=== PATIENT | female | born 1960 | race American Indian/Alaskan Native ===

== ENCOUNTER 2016-06-09 22:07 | Emergency (ER) | payer OTHER ==
[2016-06-09] MEDS ORDERED: TYLENOL PO ONE (22:24)
--- NOTE | 2016-06-10 05:43 | Emergency Department Report ---
- General Chief Complaint: Upper Respiratory Infection Stated Complaint: FLU SX Source: patient Mode of arrival: Wheelchair Limitations: No Limitations - History of Present Illness Initial Comments: 55-year-old female comes in for complaint of fever headache body aches diarrhea and vomiting coughing times one day. She she is here with her daughter with the same symptoms. Mother reports that she's also been out of her amlodipine she has an appointment with [facility] but appointment is not until August 10. She is requesting a refill on her blood pressure medicine. MD Complaint: fever, cough, sore throat - Related Data Previous Rx's Medication Instructions Recorded Last Taken Type Cetirizine HCl [ZyrTEC] 10 mg PO QDAY #30 capsule 06/10/16 Unknown Rx Fluticasone [Flonase] 1 spray NS QDAY #1 bottle 06/10/16 Unknown Rx amLODIPine [Norvasc] 5 mg PO DAILY #90 tab 06/10/16 Unknown Rx Allergies Allergy/AdvReac Type Severity Reaction Status Date / Time No Known Allergies Allergy Verified 09/30/14 11:27 ED Review of Systems ROS: Stated complaint: FLU SX Other details as noted in HPI Constitutional: chills, fever, malaise ENT: throat pain Respiratory: cough Gastrointestinal: nausea, vomiting, diarrhea ED Past Medical Hx - Past Medical History Previous Medical History?: Yes Hx Hypertension: Yes - Surgical History Past Surgical History?: Yes Hx Breast Surgery: Yes (reduction) Additional Surgical History: - Social History Smoking Status: Never Smoker Substance Use Type: None - Medications Home Medications: Home Medications Medication Instructions Recorded Confirmed Last Taken Type Cetirizine HCl [ZyrTEC] 10 mg PO QDAY #30 capsule 06/10/16 Unknown Rx Fluticasone [Flonase] 1 spray NS QDAY #1 bottle 06/10/16 Unknown Rx amLODIPine [Norvasc] 5 mg PO DAILY #90 tab 06/10/16 Unknown Rx ED Physical Exam - General Limitations: No Limitations General appearance: alert, in no apparent distress - Head Head exam: Present: atraumatic, normocephalic - Eye Eye exam: Present: normal appearance, PERRL - ENT ENT exam: Present: normal exam, mucous membranes moist - Neck Neck exam: Present: tenderness - Respiratory Respiratory exam: Present: normal lung sounds bilaterally. Absent: respiratory distress - Cardiovascular Cardiovascular Exam: Present: regular rate, normal rhythm. Absent: systolic murmur, diastolic murmur, rubs, gallop - GI/Abdominal GI/Abdominal exam: Present: soft, normal bowel sounds - Extremities Exam Extremities exam: Present: normal inspection ED Course Vital Signs 06/09/16 22:17 Temperature 101.6 F H Pulse Rate 115 H Respiratory 22 Rate Blood Pressure 156/109 O2 Sat by Pulse 97 Oximetry ED Medical Decision Making - Medical Decision Making Patient's been evaluated by this provider in fast track. Patient was given Tylenol in triage which she reports has helped with her fever and body aches. We sent out a rapid strep as well as influenza. Rapid strep and influenza negative. Discharge patient on amlodipine 5 mg 1 tablet by mouth daily as well as Zyrtec' s 10 mg by mouth daily Flonase 50 g each nostril daily. Patient verbalized understanding Critical care attestation.: If time is entered above; I have spent that time in minutes in the direct care of this critically ill patient, excluding procedure time. ED Disposition Clinical Impression: URI (upper respiratory infection) Qualifiers: URI type: unspecified URI Qualified Code(s): J06.9 - Acute upper respiratory infection, unspecified HTN (hypertension) Qualifiers: Hypertension type: essential hypertension Qualified Code(s): I10 - Essential ( primary) hypertension Disposition: DISCHARGED TO HOME OR SELFCARE Is pt being admited?: No Does the pt Need Aspirin: No Condition: Stable Instructions: Hypertension (ED) Additional Instructions: Provider recommends [id number] Robitussin or Mucinex for cough. Very importantly keep your appointment at [facility] for your hypertension. Takes [id number] TheraFlu Motrin Tylenol for pain and discomfort Prescriptions: amLODIPine [Norvasc] 5 mg PO DAILY #90 tab Cetirizine HCl [ZyrTEC] 10 mg PO QDAY #30 capsule Fluticasone [Flonase] 1 spray NS QDAY #1 bottle Referrals: PRIMARY CARE, [Primary Care Provider] - 3-5 Days [facility] [Outside] - 3-5 Days Forms: Work/School Release Form(ED)
[2016-06-10 06:46] VITALS: BP 148/96
== END 2016-06-10 06:03 | disposition home or self-care (01) ==
LOC: ED 22:07
DX: J06.9 Acute upper respiratory infection, unspecified (principal); I10 Essential (primary) hypertension; R11.2 Nausea with vomiting, unspecified; R19.7 Diarrhea, unspecified; R51 Headache; M79.1 Myalgia
CPT/HCPCS: 87116; 87400; 87430; 99283

== ENCOUNTER 2016-11-22 13:24 | Emergency (ER) | payer SELFPAY ==
[2016-11-22 14:58] VITALS: BP 151/98
--- NOTE | 2016-11-22 18:42 | Emergency Department Report ---
Entered by LUCIANA GLASS, acting as scribe for JATIN BIRD NP. - General Chief Complaint: Sore Throat Stated Complaint: SORE THROAT/TINGLING IN BOTH ARMS/HEADACHE Time Seen by Provider: 11/22/16 15:48 Source: patient Mode of arrival: Ambulatory Limitations: No Limitations - History of Present Illness Initial Comments: This is a 55 y/o female, nontoxic, well nourished in appearance, no acute signs of distress with a PMHx of HTN presents with c/o an upper respiratory infection for 4 days. Reports associated cough with yellow sputum, sore throat, and bilateral posterior shoulder pain. Rates throat pain a 6/10 in severity, which she describes as aching in quality. Aggravated with swallowing and alleviated with nothing. Rates bilateral posterior shoulder pain a 6/10 in severity, which she describes as aching in quality. Aggravated with movement and alleviated with immobilization. Patient denies fever, chills, chest pain, SOB, TERRAZAS or dizziness, numbness, drooling, difficulty swallowing, facial numbness or swelling, or tingling. Took Michelletahira Willamser and OTC cold medication with no relief. NKDA. GAVIN Complaint: cough, sore throat Onset/Timin -: days(s) Severity: moderate Severity scale (0 -10): 6 Quality: aching Consistency: constant Improves With: nothing Worsens With: other (swallowing) Associated Symptoms: denies other symptoms, myalgias (bilateral posterior shoulder pain), sore throat, cough (with yellow sputum). denies: fever, chills , diaphoresis, headache, rhinorrhea, nasal congestion, stiff neck, chest pain, shortness of breath, abdominal pain, nausea, vomiting, diarrhea, dysuria, rash, confusion, right sweats, weight loss, epistaxis, hoarseness, ear pain Treatments Prior to Arrival: "cold medicine", other (Liz Denney) - Related Data Previous Rx's Medication Instructions Recorded Last Taken Type Cetirizine HCl [ZyrTEC] 10 mg PO QDAY #30 capsule 06/10/16 Unknown Rx Fluticasone [Flonase] 1 spray NS QDAY #1 bottle 06/10/16 Unknown Rx amLODIPine [Norvasc] 5 mg PO DAILY #90 tab 06/10/16 Unknown Rx Amoxicillin [Trimox CAP] 500 mg PO Q8H #20 capsule 11/22/16 Unknown Rx Allergies Allergy/AdvReac Type Severity Reaction Status Date / Time No Known Allergies Allergy Verified 09/30/14 11:27 ED Review of Systems Comment: All other systems reviewed and negative Constitutional: denies: chills, diaphoresis, fever, weakness Eyes: denies: eye pain, eye discharge, vision change ENT: throat pain. denies: ear pain Respiratory: cough (with yellow sputum). denies: orthopnea, shortness of breath , SOB with exertion, SOB at rest, stridor, wheezing Cardiovascular: denies: chest pain, palpitations, dyspnea on exertion, orthopnea , edema, syncope, paroxysmal nocturnal dyspnea Endocrine: no symptoms reported Gastrointestinal: denies: abdominal pain, nausea, vomiting, diarrhea Genitourinary: denies: urgency, dysuria, discharge Musculoskeletal: other (bilateral posterior shoulder pain). denies: back pain, joint swelling, arthralgia Skin: denies: rash, lesions Neurological: denies: headache, weakness, numbness, paresthesias Psychiatric: denies: anxiety, depression Hematological/Lymphatic: denies: easy bleeding, easy bruising ED Past Medical Hx - Past Medical History Previous Medical History?: Yes Hx Hypertension: Yes - Surgical History Past Surgical History?: Yes Hx Breast Surgery: Yes (reduction) Additional Surgical History: , Tubaligation - Social History Smoking Status: Never Smoker Substance Use Type: Alcohol, Prescribed - Medications Home Medications: Home Medications Medication Instructions Recorded Confirmed Last Taken Type Cetirizine HCl [ZyrTEC] 10 mg PO QDAY #30 capsule 06/10/16 Unknown Rx Fluticasone [Flonase] 1 spray NS QDAY #1 bottle 06/10/16 Unknown Rx amLODIPine [Norvasc] 5 mg PO DAILY #90 tab 06/10/16 Unknown Rx Amoxicillin [Trimox CAP] 500 mg PO Q8H #20 capsule 11/22/16 Unknown Rx ED Physical Exam - General Limitations: No Limitations General appearance: alert, in no apparent distress - Head Head exam: Present: atraumatic, normocephalic - Eye Eye exam: Present: normal appearance, PERRL, EOMI. Absent: scleral icterus, conjunctival injection, nystagmus, periorbital swelling, periorbital tenderness Pupils: Present: normal accommodation - ENT ENT exam: Present: normal exam, mucous membranes moist, TM's normal bilaterally , normal external ear exam - Expanded ENT Exam Expanded Ear exam: Present: normal external inspection Mouth exam: Present: normal external inspection, tongue normal. Absent: drooling, trismus, muffled voice, tongue elevation, laceration Teeth exam: Present: normal inspection Throat exam: Positive: tonsillar erythema, tonsillomegaly (2+), tonsillar exudate, other (uvula midline. No tonsillar abscess noted. No swelling. No pus or drainage. ). Negative: R peritonsillar mass, L peritonsillar mass - Neck Neck exam: Present: normal inspection, full ROM. Absent: tenderness, meningismus, lymphadenopathy, thyromegaly - Respiratory Respiratory exam: Present: normal lung sounds bilaterally. Absent: respiratory distress, wheezes, rales, rhonchi, stridor, chest wall tenderness, accessory muscle use, decreased breath sounds, prolonged expiratory - Cardiovascular Cardiovascular Exam: Present: regular rate, normal rhythm, normal heart sounds. Absent: bradycardia, tachycardia, irregular rhythm, systolic murmur, diastolic murmur, rubs, gallop - GI/Abdominal GI/Abdominal exam: Present: soft, normal bowel sounds. Absent: distended, tenderness, guarding, rebound, rigid - Rectal Rectal exam: Present: deferred - Extremities Exam Extremities exam: Present: normal inspection, full ROM, normal capillary refill. Absent: tenderness, pedal edema, joint swelling, calf tenderness - Expanded Upper Extremity Exam Right General: Present: normal inspection (bilaterally). Absent: laceration, abrasion , nail injury (#), foreign body, amputation, avulsion Shoulder Exam: Present: normal inspection (bilaterally), full ROM. Absent: tenderness, swelling, abrasion, laceration, ecchymosis, deformity, crepidus, dislocation, erythema, tenderness over AC joint Upper Arm exam: Present: normal inspection (bilaterally), full ROM. Absent: tenderness, swelling, abrasion, laceration, ecchymosis, deformity, crepidus, dislocation, erythema Elbow exam: Present: normal inspection (bilaterally), full ROM. Absent: tenderness, swelling, abrasion, laceration, ecchymosis, deformity, crepidus, dislocation, erythema, effusion, pain w/ pronation/supination, tenderness over radial head Forearm Wrist exam: Present: normal inspection (bilaterally), full ROM. Absent : tenderness, swelling, abrasion, laceration, ecchymosis, deformity, crepidus, dislocation, erythema, tenderness over anatomical snuff box, pain with axial thumb loading Hand Wrist exam: Present: normal inspection (bilaterally), full ROM. Absent: tenderness, swelling, abrasion, laceration, ecchymosis, deformity, crepidus, dislocation, erythema, amputation, nail avulsion, subungual hematoma Neuro motor exam: Present: wrist extension intact, thumb opposition intact, thumb IP flexion intact, thumb adduction intact, fingers 2-5 abduction intact Neurosensory exam: Present: 2-point discrimination, radial nerve intact, ulnar nerve intact, median nerve intact Vascular: Present: normal capillary refill, radial pulse (2+), brachial pulse (2 +), ulnar pulse (2+). Absent: vascular compromise, Pallo, pulse deficit radial art, pulse deficit ulnar art, pulse deficit brachial art - Back Exam Back exam: Present: normal inspection, full ROM. Absent: tenderness, CVA tenderness (R), CVA tenderness (L), muscle spasm, paraspinal tenderness, vertebral tenderness, rash noted - Neurological Exam Neurological exam: Present: alert, oriented X3, CN II-XII intact, normal gait, reflexes normal. Absent: motor sensory deficit - Psychiatric Psychiatric exam: Present: normal affect, normal mood - Skin Skin exam: Present: warm, dry, intact. Absent: rash ED Course Vital Signs 11/22/16 14:53 Temperature 98.3 F Pulse Rate 74 Respiratory 20 Rate Blood Pressure 151/98 O2 Sat by Pulse 100 Oximetry - Reevaluation(s) Reevaluation #1: 11/22/16 16:34 Patient is able to speak in full sentences with no signs of distress noted. ED Medical Decision Making - Medical Decision Making ED course; this is a 55-year-old female that presents with exudative tonsillitis 1- patient was examined myself. Signs and symptoms are consistent with exudative tonsillitis and patient be treated with amoxicillin for 10 days. 2- patient was also instructed to follow up with her primary care doctor in 3-5 days or if symptoms such as shortness of breath, chest pain, difficulty breathing, difficulty swallowing, drooling, or worsening symptoms return to emergency room as was possible. 3- at time time of discharge, the patient does not seem toxic or ill in appearance. No acute signs of distress noted. Patient agrees to discharge treatment plan of care. No further questions noted by the patient. ED Disposition Clinical Impression: Exudative tonsillitis Disposition: DC- TO HOME OR SELFCARE Is pt being admited?: No Does the pt Need Aspirin: No Condition: Stable Instructions: Amoxicillin (By mouth), Tonsillitis (ED) Additional Instructions: follow up with your primary care doctor in 3-5 days or if symptoms such as shortness of breath, chest pain, difficulty breathing, difficulty swallowing, drooling, or worsening symptoms return to emergency room as was possible. Take full course of antibiotics and was prescribed. Prescriptions: Amoxicillin [Trimox CAP] 500 mg PO Q8H #20 capsule Referrals: PRIMARY CAREMD [Primary Care Provider] - 3-5 Days HUGO MATTHEW JR, MD [Staff Physician] - 3-5 Days [facility] [Outside] - 3-5 Days [facility] [Outside] - 3-5 Days Forms: Work/School Release Form(ED) This documentation as recorded by the QUAN luciano JASMINE,accurately reflects the service I personally performed and the decisions made by me,JATIN BIRD, LALI.
== END 2016-11-22 17:41 | disposition home or self-care (01) ==
LOC: ED 13:24
DX: J03.90 Acute tonsillitis, unspecified (principal); I10 Essential (primary) hypertension
CPT/HCPCS: 99282

== ENCOUNTER 2018-02-19 13:47 | Emergency (ER) | payer MEDICAID ==
[2018-02-19 14:28] VITALS: BP 135/84
[2018-02-19 15:12] LABS: Basophils % (Auto) 0.8 % (0.0-1.8); Eosinophils # (Auto) 0.2 K/mm3 (0.0-0.4); Eosinophils % (Auto) 4.5 % (0.0-4.3); Hematocrit 37.9 % (30.3-42.9); Hemoglobin 12.4 gm/dl (10.1-14.3); Lymphocytes # (Auto) 1.7 K/mm3 (1.2-5.4); Lymphocytes % (Auto) 47.2 % (13.4-35.0); Mean Corpuscular HGB Conc 33 % (30-34); Mean Corpuscular Volume 78 fl (79-97); Monocytes # (Auto) 0.5 K/mm3 (0.0-0.8); Monocytes % (Auto) 12.6 % (0.0-7.3); Platelet Count 265 K/mm3 (140-440); Red Blood Count 4.89 M/mm3 (3.65-5.03); Red Cell Distribution Width 14.1 % (13.2-15.2)
[2018-02-19 15:14] LABS: Mean Corpuscular Hemoglobin 25 pg (28-32)
[2018-02-19 15:25] LABS: Alanine Aminotransferase 17 units/L (7-56); BUN/Creatinine Ratio 17; Blood Urea Nitrogen 10 mg/dL (7-17); Calcium 9.1 mg/dL (8.4-10.2); Hemolysis Index 0; Lipase 20 units/L (13-60)
--- NOTE | 2018-02-19 15:49 | Emergency Department Report ---
ED Abdominal Pain HPI - General Chief Complaint: Abdominal Pain Stated Complaint: STOMACH PAIN (L) SIDE PAIN Time Seen by Provider: 02/19/18 15:41 Source: patient Mode of arrival: Ambulatory Limitations: No Limitations - History of Present Illness MD Complaint: abdominal pain -: Sudden, days(s) Location: diffuse Improves With: nothing Worsens With: nothing Associated Symptoms: nausea, vomiting - Related Data Previous Rx's Medication Instructions Recorded Last Taken Type amLODIPine [Norvasc] 5 mg PO DAILY #90 tab 06/10/16 Unknown Rx Ondansetron [Zofran Odt] 4 mg PO Q6H PRN #10 tab.rapdis 02/19/18 Unknown Rx Allergies Allergy/AdvReac Type Severity Reaction Status Date / Time No Known Allergies Allergy Verified 09/30/14 11:27 ED Review of Systems ROS: Stated complaint: STOMACH PAIN (L) SIDE PAIN Other details as noted in HPI Comment: All other systems reviewed and negative Constitutional: denies: chills, fever Eyes: denies: eye pain ENT: denies: ear pain Respiratory: denies: cough Cardiovascular: denies: palpitations Endocrine: denies: excessive sweating Gastrointestinal: abdominal pain, nausea, vomiting, diarrhea. denies: constipation, hematemesis Genitourinary: denies: urgency, dysuria Musculoskeletal: denies: back pain Skin: denies: rash, lesions Neurological: denies: headache, weakness Psychiatric: denies: anxiety, depression Hematological/Lymphatic: denies: easy bleeding ED Past Medical Hx - Past Medical History Hx Hypertension: Yes - Surgical History Hx Breast Surgery: Yes (reduction) Additional Surgical History: , Tubaligation - Social History Smoking Status: Never Smoker Substance Use Type: None - Medications Home Medications: Home Medications Medication Instructions Recorded Confirmed Last Taken Type amLODIPine [Norvasc] 5 mg PO DAILY #90 tab 06/10/16 Unknown Rx Ondansetron [Zofran Odt] 4 mg PO Q6H PRN #10 tab.rapdis 02/19/18 Unknown Rx ED Physical Exam - General Limitations: No Limitations General appearance: alert - Head Head exam: Present: atraumatic - Eye Eye exam: Present: normal appearance Pupils: Present: normal accommodation - ENT ENT exam: Present: mucous membranes moist - Neck Neck exam: Present: normal inspection - Respiratory Respiratory exam: Present: normal lung sounds bilaterally - Cardiovascular Cardiovascular Exam: Present: regular rate - GI/Abdominal GI/Abdominal exam: Present: soft, normal bowel sounds. Absent: distended, tenderness, guarding, rebound, rigid, diminished bowel sounds - Rectal Rectal exam: Present: deferred - Extremities Exam Extremities exam: Present: normal inspection - Back Exam Back exam: Present: normal inspection - Neurological Exam Neurological exam: Present: alert, oriented X3, CN II-XII intact - Psychiatric Psychiatric exam: Present: normal affect, normal mood - Skin Skin exam: Present: warm, dry, intact ED Course Vital Signs 02/19/18 14:26 Temperature 98.1 F Pulse Rate 89 Respiratory 14 Rate Blood Pressure 135/84 O2 Sat by Pulse 100 Oximetry ED Medical Decision Making - Lab Data Result diagrams: 02/19/18 14:56 02/19/18 14:56 - Medical Decision Making labs noted not orthostatic no fever non toxic taking po ambulatory fam w same gi illness over last few days - Differential Diagnosis gastroenteritis v uti Critical care attestation.: If time is entered above; I have spent that time in minutes in the direct care of this critically ill patient, excluding procedure time. ED Disposition Clinical Impression: Gastroenteritis, Hypokalemia Disposition: DC-01 TO HOME OR SELFCARE Is pt being admited?: No Does the pt Need Aspirin: No Condition: Stable Instructions: Gastroenteritis (ED), Acute Nausea and Vomiting (ED) Additional Instructions: eat a banana and/or orange juice every day hydrate well with water and slowly progress your diet as tolerated med today for nausea follow up pcp in 24-48 h if not better activity as tolerated Prescriptions: Ondansetron [Zofran Odt] 4 mg PO Q6H PRN #10 tab.rapdis PRN Reason: Nausea Referrals: PRIMARY CARE, [Primary Care Provider] - 3-5 Days PATRICK GONZALEZ MD [Referring] - 3-5 Days Forms: Work/School Release Form(ED) Time of Disposition: 16:54
[2018-02-19] MEDS ORDERED: ZOFRAN ODT PO ONE (15:52)
[2018-02-19] MEDS ORDERED: K-DUR PO ONE (16:19)
[2018-02-19 17:46] LABS: Bacteria,Urine 1+ /HPF (Negative); Bilirubin,Urine NEG (Negative); Blood,Urine MOD (Negative); Color,Urine Yellow (Yellow); Mucus,Urine FEW /HPF; Protein,Urine <15 mg/dL mg/dL (Negative)
== END 2018-02-19 18:05 | disposition home or self-care (01) ==
LOC: ED 13:47
DX: K52.9 Noninfective gastroenteritis and colitis, unspecified (principal); E87.6 Hypokalemia; I10 Essential (primary) hypertension; Z98.51 Tubal ligation status
CPT/HCPCS: 36415; 80053; 81001; 83690; 85025; 99283; Q0162

== ENCOUNTER 2020-08-31 20:34 | Observation (INO) | payer MEDICAID ==
[2020-08-31] MEDS ORDERED: ASPIRIN 81 MG TAB CHEW PO ONE (22:58)
--- NOTE | 2020-08-31 23:03 | Event Note ---
ED Screening Note Date of service: 08/31/20 Time: 22:59 ED Screening Note: 59-year-old female patient with history of hypertension presents to the emergency department with complaints of chest pain occurring tonight. Patient states she developed a "heavy" sensation in her chest after getting out of the shower tonight. She states this episode lasted approximately 20 minutes before resolving spontaneously. Patient recently began taking hydrochlorothiazide for hypertension. No other recent medication changes. No history of hyperlipidemia, diabetes, tobacco use. No known history of coronary artery disease. Tachycardic in triage. General: Awake, appropriately interactive, no acute distress. Neck: Supple. Full range of motion intact. Cardiovascular: Regular rate and rhythm. Normal peripheral perfusion. Pulmonary: Clear to auscultation bilaterally. No respiratory distress. Patient is speaking normally without use of accessory muscles. Skin: No apparent rashes or lesions. Neurological: No facial asymmetry. Speech is clear. Follows commands. Patient is alert and oriented. Musculoskeletal: Moves all four extremities spontaneously with normal range of motion. Psych: Cooperative. Appropriate mood and affect. I have greeted and performed a focused rapid initial assessment of this patient. A comprehensive ED assessment and evaluation of the patient, analysis of all test results, and completion of the medical decision-making process will be conducted by additional ED providers. This initial assessment/diagnostic orders/clinical plan/treatment(s) is/are subject to change based on patients health status, clinical progression and re-assessment. Further treatment and workup at subsequent clinical provider's discretion. Patient/guardian urged not to elope from the ED as their condition may be serious if not clinically assessed and managed. Decision to pursue further PE work-up deferred to additional ED providers.
[2020-08-31 23:31] LABS: Basophils # (Auto) 0.1 K/mm3 (0.0-0.1); Basophils % (Auto) 0.8 % (0.0-1.8); Eosinophils # (Auto) 0.2 K/mm3 (0.0-0.4); Eosinophils % (Auto) 2.1 % (0.0-4.3); Hematocrit 38.2 % (30.3-42.9); Hemoglobin 12.6 gm/dl (10.1-14.3); Lymphocytes # (Auto) 2.7 K/mm3 (1.2-5.4); Lymphocytes % (Auto) 36.1 % (13.4-35.0); Mean Corpuscular HGB Conc 33 % (30-34); Mean Corpuscular Volume 78 fl (79-97); Monocytes # (Auto) 0.7 K/mm3 (0.0-0.8); Platelet Count 269 K/mm3 (140-440); Red Blood Count 4.93 M/mm3 (3.65-5.03); Red Cell Distribution Width 14.9 % (13.2-15.2)
[2020-08-31 23:42] LABS: INR 0.94 (0.87-1.13); Partial Thromboplastin Time 28.1 Sec. (24.2-36.6)
[2020-09-01 00:38] LABS: Alanine Aminotransferase 15 units/L (7-56); Albumin 4.2 g/dL (3.9-5); BUN/Creatinine Ratio 14; Blood Urea Nitrogen 11 mg/dL (7-17); Calcium 9.9 mg/dL (8.4-10.2); Hemolysis Index 0
--- NOTE | 2020-09-01 01:25 | XRay Report ---
CHEST 2 VIEWS INDICATION / CLINICAL INFORMATION: Chest and epigastric pain. COMPARISON: 01/25/15. FINDINGS: SUPPORT DEVICES: None. HEART / MEDIASTINUM: The heart size is the upper limits of normal. Pulmonary vasculature is normal. T he aorta is normal in caliber. LUNGS / PLEURA: No significant pulmonary or pleural abnormality. No pneumothorax. ADDITIONAL FINDINGS: No significant additional findings. IMPRESSION: No acute abnormality or significant change. Signer Name: Chaitanya Landa MD Signed: 09/01/2020 1:21 AM Workstation Name: [id number]
--- NOTE | 2020-09-01 03:50 | Emergency Department Report ---
ED Chest Pain HPI - General Chief Complaint: Chest Pain Stated Complaint: Chest pain, lightheadedness PUI?: No Time Seen by Provider: 09/01/20 03:34 Source: patient, RN notes reviewed, old records reviewed Mode of arrival: Ambulatory Limitations: No Limitations - History of Present Illness Initial Comments: The patient was evaluated in the emergency department for symptoms described in the history of present illness. He/she was evaluated in the context of the global COVID-19 pandemic, which necessitated consideration that the patient might be at risk for infection with the virus that causes COVID-19. Institutional protocols and algorithms that pertain to the evaluation of patients at risk for COVID-19 are in a state of rapid change based on information released by regulatory bodies including the CDC and federal and s villarreal organizations. These policies and algorithms were followed during the patient's care in the emergency department. Please note that these policies, procedures and recommendations changed on a rapid basis. This is a 59-year-old female. She is not known to myself previously. Past medical history includes obesity, hypertension, question family history of ischemic heart disease and stroke. The patient presents to the ER today with complaint of nontraumatic epigastric pain, chest pain, that moved up to her neck. This happened last night. This is associated with lightheadedness. The patient denies travel, surgery, posterior leg pain or leg swelling, DVT and pulmonary embolism risk factors. The patient denies headache, exertional shortness of breath which is new or different, vomiting diaphoresis. She denies hematemesis and bright red blood per rectum. She took Goody's, but no recent aspirin otherwise. She believes she may have had a stress test a few months ago, and believes it was negative. However, she reports having had a stress test because of "elevated blood pressure." The patient reports that she is symptom-free at this time. She denies loss of consciousness. MD Complaint: chest pain, other -: Sudden Pain Location: substernal Pain Radiation: neck Severity: moderate Quality: other (Describes pain as burning in nature) Consistency: now resolved Improves With: nothing Worsens With: nothing re: other (Lightheadedness) Aspirin use within the Past 7 Days: (0) No - Related Data Previous Rx's Medication Instructions Recorded Last Taken Type amLODIPine 5 mg PO DAILY #90 tab 06/10/16 Unknown Rx Ondansetron [Zofran Odt] 4 mg PO Q6H PRN #10 tab.rapdis 02/19/18 Unknown Rx Allergies Allergy/AdvReac Type Severity Reaction Status Date / Time No Known Allergies Allergy Verified 09/30/14 11:27 Heart Score - HEART Score History: Moderately suspicious EKG: Non-specific Age: 45-65 Risk factors: > 3 risk factors or hx of atherosclerotic disease Troponin: < normal limit HEART Score: 5 - EKG Read Time Time EKG Completed: 20:50 EKG Read Time: 21:00 - Critical Actions Critical Actions: 4-6 pts:12-16.6% risk of adverse cardiac event. Should be admitted ED Review of Systems ROS: Stated complaint: LIGHT HEAD/BLOOD PRESSURE Other details as noted in HPI Constitutional: malaise, weakness. denies: fever Eyes: denies: eye discharge Respiratory: denies: cough Cardiovascular: chest pain, other (Lightheadedness) Gastrointestinal: denies: abdominal pain, hematemesis, melena, hematochezia Genitourinary: denies: dysuria Musculoskeletal: myalgia Neurological: weakness Psychiatric: anxiety Hematological/Lymphatic: denies: easy bleeding ED Past Medical Hx - Past Medical History Hx Hypertension: Yes - Surgical History Hx Breast Surgery: Yes (reduction) Additional Surgical History: , Tubaligation - Social History Smoking Status: Never Smoker Substance Use Type: Alcohol - Medications Home Medications: Home Medications Medication Instructions Recorded Confirmed Last Taken Type amLODIPine 5 mg PO DAILY #90 tab 06/10/16 Unknown Rx Ondansetron [Zofran Odt] 4 mg PO Q6H PRN #10 tab.rapdis 02/19/18 Unknown Rx ED Physical Exam - General Limitations: No Limitations General appearance: alert, anxious, obese - Head Head exam: Present: atraumatic, normocephalic - Eye Eye exam: Present: normal appearance, EOMI. Absent: conjunctival injection, nystagmus - ENT ENT exam: Present: normal exam, normal orophraynx, mucous membranes moist, normal external ear exam - Neck Neck exam: Present: normal inspection, full ROM. Absent: tenderness, meningismus - Respiratory Respiratory exam: Present: normal lung sounds bilaterally. Absent: respiratory distress, wheezes, rales, rhonchi, stridor, decreased breath sounds - Cardiovascular Cardiovascular Exam: Present: normal rhythm, tachycardia, normal heart sounds. Absent: bradycardia, irregular rhythm, systolic murmur, diastolic murmur, rubs, gallop - GI/Abdominal GI/Abdominal exam: Present: soft. Absent: distended, tenderness, guarding, rebound, rigid, pulsatile mass - Extremities Exam Extremities exam: Present: normal inspection, full ROM, other (2+ pulses noted in the bilateral upper and lower extremities. There is no palpable cord. negative Homans sign. Muscular compartments are soft. The pelvis is stable.). Absent: calf tenderness - Back Exam Back exam: Present: normal inspection, full ROM. Absent: tenderness, CVA tenderness (R), CVA tenderness (L), muscle spasm, paraspinal tenderness, vertebral tenderness - Neurological Exam Neurological exam: Present: alert, oriented X3, normal gait, other (No facial droop. Tongue midline. Extraocular movements intact bilaterally. Facial sensation intact to light touch in V1, V2, V3 distribution bilaterally. 5 and a 5 strength in 4 extremities. Sensation intact to light touch in 4 extremities.). Absent: motor sensory deficit - Psychiatric Psychiatric exam: Present: anxious - Skin Skin exam: Present: warm, dry, intact, normal color. Absent: rash ED Course Vital Signs 08/31/20 09/01/20 09/01/20 20:36 03:51 04:19 Temperature 98.7 F Pulse Rate 105 H 96 H Respiratory 18 18 Rate Blood Pressure 162/64 146/81 O2 Sat by Pulse 99 Oximetry HUDSON score - Hudson Score Age > 65: (0) No Aspirin use within the Past 7 Days: (0) No 3 or more CAD Risk Factors: (1) Yes 2 or more Angina events in past 24 hrs: (0) No Known CAD with more than 50% Stenosis: (0) No Elevated Cardiac Markers: (0) No ST Deviation Greater than 0.5mm: (0) No HUDSON Score: 1 ED Medical Decision Making - Lab Data Result diagrams: 08/31/20 23:10 08/31/20 23:10 Vital Signs 08/31/20 09/01/20 09/01/20 20:36 03:51 04:19 Temperature 98.7 F Pulse Rate 105 H 96 H Respiratory 18 18 Rate Blood Pressure 162/64 146/81 O2 Sat by Pulse 99 Oximetry Lab Results 08/31/20 08/31/20 08/31/20 Range/Units 23:10 23:10 23:10 WBC 7.4 (4.5-11.0) K/mm3 RBC 4.93 (3.65-5.03) M/mm3 Hgb 12.6 (10.1-14.3) gm/dl Hct 38.2 (30.3-42.9) % MCV 78 L (79-97) fl MCH 26 L (28-32) pg MCHC 33 (30-34) % RDW 14.9 (13.2-15.2) % Plt Count 269 (140-440) K/mm3 Lymph % (Auto) 36.1 H (13.4-35.0) % [place] % (Auto) 9.0 H (0.0-7.3) % Eos % (Auto) 2.1 (0.0-4.3) % Baso % (Auto) 0.8 (0.0-1.8) % Lymph # (Auto) 2.7 (1.2-5.4) K/mm3 [place] # (Auto) 0.7 (0.0-0.8) K/mm3 Eos # (Auto) 0.2 (0.0-0.4) K/mm3 Baso # (Auto) 0.1 (0.0-0.1) K/mm3 Seg Neutrophils % 52.0 (40.0-70.0) % Seg Neutrophils # 3.9 (1.8-7.7) K/mm3 PT 12.4 (12.2-14.9) Sec. INR 0.94 (0.87-1.13) APTT 28.1 (24.2-36.6) Sec. D-Dimer (0-234) ng/mlDDU Sodium 141 (137-145) mmol/L Potassium 4.3 (3.6-5.0) mmol/L Chloride 100.6 (98-107) mmol/L Carbon Dioxide 31 H (22-30) mmol/L Anion Gap 14 mmol/L BUN 11 (7-17) mg/dL Creatinine 0.8 (0.6-1.2) mg/dL Estimated GFR > 60 ml/min BUN/Creatinine Ratio 14 % Glucose 86 (65-100) mg/dL Calcium 9.9 (8.4-10.2) mg/dL Magnesium 2.10 (1.7-2.3) mg/dL Total Bilirubin 0.50 (0.1-1.2) mg/dL AST 14 (5-40) units/L ALT 15 (7-56) units/L Alkaline Phosphatase 84 (35-129) units/L Troponin T < 0.010 (0.00-0.029) ng/mL Total Protein 7.8 (6.3-8.2) g/dL Albumin 4.2 (3.9-5) g/dL Albumin/Globulin Ratio 1.2 % 08/31/20 09/01/20 Range/Units 23:10 02:09 WBC (4.5-11.0) K/mm3 RBC (3.65-5.03) M/mm3 Hgb (10.1-14.3) gm/dl Hct (30.3-42.9) % MCV (79-97) fl MCH (28-32) pg MCHC (30-34) % RDW (13.2-15.2) % Plt Count (140-440) K/mm3 Lymph % (Auto) (13.4-35.0) % [place] % (Auto) (0.0-7.3) % Eos % (Auto) (0.0-4.3) % Baso % (Auto) (0.0-1.8) % Lymph # (Auto) (1.2-5.4) K/mm3 [place] # (Auto) (0.0-0.8) K/mm3 Eos # (Auto) (0.0-0.4) K/mm3 Baso # (Auto) (0.0-0.1) K/mm3 Seg Neutrophils % (40.0-70.0) % Seg Neutrophils # (1.8-7.7) K/mm3 PT (12.2-14.9) Sec. INR (0.87-1.13) APTT (24.2-36.6) Sec. D-Dimer 135.00 (0-234) ng/mlDDU Sodium (137-145) mmol/L Potassium (3.6-5.0) mmol/L Chloride (98-107) mmol/L Carbon Dioxide (22-30) mmol/L Anion Gap mmol/L BUN (7-17) mg/dL Creatinine (0.6-1.2) mg/dL Estimated GFR ml/min BUN/Creatinine Ratio % Glucose (65-100) mg/dL Calcium (8.4-10.2) mg/dL Magnesium (1.7-2.3) mg/dL Total Bilirubin (0.1-1.2) mg/dL AST (5-40) units/L ALT (7-56) units/L Alkaline Phosphatase (35-129) units/L Troponin T < 0.010 (0.00-0.029) ng/mL Total Protein (6.3-8.2) g/dL Albumin (3.9-5) g/dL Albumin/Globulin Ratio % - EKG Data -: EKG Interpreted by [place] EKG shows normal: sinus rhythm Rate: tachycardia - EKG Data 09/01/20 04:26 EKG #1 interpreted at 21 00 Sinus rhythm, 98 bpm, left axis deviation, left anterior fascicular block, left ventricular hypertrophy, QTC prolonged. This is an abnormal EKG. This is not a STEMI. When compared to prior EKG from 2016, left axis deviation is more prominent. Left anterior fascicular block appears more prominent. There are nonspecific changes when compared to prior EKG - Radiology Data Radiology results: pending, report reviewed, image reviewed [facility] [address] [place] [address] X Ray Report Signed Patient: ANNABELLE MORENO MR#: [id number] 5 : 1960 Acct:[id number] Age/Sex: 59 / F ADM Date: 08/31/20 Loc: ED Attending Dr: Ordering Physician: ANAND HOWARD Date of Service: 08/31/20 Procedure(s): XR chest routine 2V Accession Number(s): [id number] cc: ANAND HOWARD Fluoro Time In Minutes: CHEST 2 VIEWS INDICATION / CLINICAL INFORMATION: Chest and epigastric pain. COMPARISON: 01/25/15. FINDINGS: SUPPORT DEVICES: None. HEART / MEDIASTINUM: The heart size is the upper limits of normal. Pulmonary vasculature is normal. The aorta is normal in caliber. LUNGS / PLEURA: No significant pulmonary or pleural abnormality. No pneumothorax. ADDITIONAL FINDINGS: No significant additional findings. IMPRESSION: No acute abnormality or significant change. Signer Name: Chaitanya Landa MD Signed: 09/01/2020 1:21 AM Workstation Name: [id number] Transcribed By: RT Dictated By: Chaitanya Landa MD Electronically Authenticated By: Chaitanya Landa MD Signed Date/Time: 09/01/20120 DD/ 9 - Medical Decision Making Differential diagnosis, including but not limited to: GERD, gastritis, hiatal hernia, pneumonia, acute coronary syndrome, pulmonary embolism Assessment and plan: 59-year-old female, with resolved tachycardia, who is not currently tachypneic or hypoxic, who denies DVT and pulmonary embolism risk factors, low risk by Wells criteria for pulmonary embolism, negative D-dimer, abnormal EKG, multiple cardiovascular risk factors, including family history, obesity, hypertension, moderate risk for major adverse cardiac event as per heart score, without pulsatile abdominal mass, who has equal pulses in the upper and lower extremities, unremarkable mediastinum x-ray of the chest, this is unlikely to be aortic disease, given heart score, vascular risk factor profile, have recommended admission to the medical service for accelerated cardiac risk ratification. We will treat the patient's symptoms. We have discussed this plan of care with the patient. She is amenable to admission and hospitali zation. [facility] physician, Dr. Joyce Banda, to admit to [facility] for accelerated cardiac risk stratification. Critical care attestation.: If time is entered above; I have spent that time in minutes in the direct care of this critically ill patient, excluding procedure time. ED Disposition Clinical Impression: Acute chest pain, Hypertension, Abnormal EKG Disposition: OP ADMIT IP TO THIS HOSP Is pt being admited?: Yes Does the pt Need Aspirin: No Condition: Good Instructions: Chest Pain (ED), Hypertension (ED) Referrals: WILLIAM HECTOR MD [Primary Care Provider] - 3-5 Days
[2020-09-01] MEDS ORDERED: amLODIPine 5 MG TAB PO ONE (03:51)
[2020-09-01] MEDS ORDERED: NITROGLYCERIN 0.4 MG TAB SUBL SL PRN (03:51)
--- NOTE | 2020-09-01 04:25 | History and Physical Report ---
History of Present Illness Date of examination: 09/01/20 Date of admission: 09/01/20 Chief complaint: Chest pain History of present illness: 59-year-old female patient with history of hypertension presents to the emergency department with complaints of chest pain occurring tonight. Patient states she developed a "heavy" sensation in her chest after getting out of the shower tonight. She states this episode lasted approximately 20 minutes before resolving spontaneously. Patient recently began taking hydrochlorothiazide for hypertension. No other recent medication changes. No history of hyperlipidemia, diabetes, tobacco use. No known history of coronary artery disease. ED work-up shows WBC 7.4, hemoglobin 12.6, platelets 629, D-dimer 135, sodium 141. Potassium 4.3 creatinine 0.8, BUN 11, troponin negative, calcium 9.9, serum glucose 86, magnesium 2.0. Checks x-ray showed no acute abnormality. Patient seen in ED at bedside. Patient is on room air. Patient alert and oriented x3. Patient said she came in due to chest pain. Patient denies chest pain at the time of this assessment. EKG was done and was not abnormal patient is admitted to rule out ischemic heart disease. Patient reported history of high blood pressure, breast reduction surgery, and . Patient denies tobacco, alcohol, illicit drug use. Patient not in acute distress. Echo and stress test ordered. Cardiology consulted Past History Past Medical History: hypertension Past Surgical History: , Other (Breast reduction) Social history: no significant social history, lives with family Family history: diabetes, hypertension Medications and Allergies Allergies Allergy/AdvReac Type Severity Reaction Status Date / Time No Known Allergies Allergy Verified 09/30/14 11:27 Home Medications Medication Instructions Recorded Confirmed Last Taken Type amLODIPine 5 mg PO DAILY #90 tab 06/10/16 Unknown Rx Ondansetron [Zofran Odt] 4 mg PO Q6H PRN #10 tab.rapdis 02/19/18 Unknown Rx Active Meds: Active Medications Nitroglycerin (Nitroglycerin 0.4 Mg Tab Subl) 0.4 mg SL .Q5MIN PRN PRN Reason: Chest Pain Review of Systems Constitutional: weakness Ears, nose, mouth and throat: no epistaxis, no bleeding gums, no swelling in mouth Breasts: no skin changes Cardiovascular: chest pain, no dyspnea on exertion Respiratory: no wheezing, no pleurisy Gastrointestinal: no abdominal pain, no nausea Rectal: no hemorrhoids Musculoskeletal: no neck stiffness, no neck pain Integumentary: no rash, no pruritis Neurological: no head injury Psychiatric: anxiety Hematologic/Lymphatic: no easy bruising, no easy bleeding Allergic/Immunologic: no urticaria Exam - Constitutional Vitals: Temp Pulse Resp BP Pulse Ox 98.7 F 96 H 18 146/81 99 08/31/20 20:36 09/01/20 04:19 09/01/20 03:51 09/01/20 04:19 08/31/20 20:36 General appearance: Present: mild distress, well-nourished - EENT Eyes: Present: PERRL ENT: hearing intact, clear oral mucosa - Neck Neck: Present: supple, normal ROM - Respiratory Respiratory effort: normal Respiratory: bilateral: CTA - Cardiovascular Heart rate: 96 Heart Sounds: Present: S1 & S2. Absent: rub, click - Extremities Extremities: pulses symmetrical, No edema Peripheral Pulses: within normal limits - Abdominal General gastrointestinal: Present: soft, non-tender, non-distended, normal bowel sounds Female genitourinary: Present: normal - Integumentary Integumentary: Present: clear, warm, dry. Absent: rash - Musculoskeletal Musculoskeletal: strength equal bilaterally - Psychiatric Psychiatric: appropriate mood/affect, intact judgment & insight, cooperative - Neurologic Neurologic: CNII-XII intact, moves all extremities - Allied Health Allied health notes reviewed: nursing HEART Score - HEART Score EKG: Non-specific Age: 45-65 Risk factors: > 3 risk factors or hx of atherosclerotic disease Troponin: Troponin T < 0.010 ng/mL (0.00-0.029) 09/01/20 02:09 Troponin: < normal limit - Critical Actions Critical Actions: 4-6 pts:12-16.6% risk of adverse cardiac event. Should be admitted Results - Labs CBC & Chem 7: 08/31/20 23:10 08/31/20 23:10 Labs: Abnormal lab results 08/31/20 08/31/20 Range/Units 23:10 23:10 MCV 78 L (79-97) fl MCH 26 L (28-32) pg Lymph % (Auto) 36.1 H (13.4-35.0) % [place] % (Auto) 9.0 H (0.0-7.3) % Carbon Dioxide 31 H (22-30) mmol/L Assessment and Plan - Patient Problems (1) Chest pain, rule out acute myocardial infarction Current Visit: No Status: Acute Plan to address problem: Patient has EKG abnormality but negative troponin Monitor cardiac enzymes and check twelve-lead EKG Antiplatelet and statin, patient on room air. Echo and stress test follow-up with results Fork Operator consult follow-up with recommendation (2) Hypertension Current Visit: Yes Status: Acute Plan to address problem: Monitor blood pressure Resume home antihypertensive As needed hydralazine (3) DVT prophylaxis Current Visit: Yes Status: Acute Plan to address problem: Subcutaneous Lovenox
[2020-09-01] MEDS ORDERED: FAMOTIDINE 20 MG/2 ML INJ IV ONE (04:29)
[2020-09-01] MEDS ORDERED: hydrALAZINE 20 MG/1 ML INJ IV PRN (04:30)
[2020-09-01] MEDS ORDERED: ACETAMINOPHEN 325 MG TAB PO PRN ×2 (04:32)
[2020-09-01] MEDS ORDERED: MAGNESIUM HYDROXIDE (MOM) ORAL LIQD UDC PO PRN (04:32)
[2020-09-01] MEDS ORDERED: traMADol 50 MG TAB PO PRN (04:32)
[2020-09-01] MEDS ORDERED: ONDANSETRON 4 MG/2 ML INJ IV PRN (04:32)
[2020-09-01] MEDS ORDERED: ALUM-MAG HYDROXIDE-SIMETHICONE 200-200-20MG/5ML ORAL LIQD 30 ML PO PRN (04:32)
[2020-09-01] MEDS ORDERED: traZODone 50 MG TAB PO PRN (04:42)
[2020-09-01] MEDS ORDERED: ASPIRIN 325 MG TAB PO ONE (05:39)
[2020-09-01] MEDS ORDERED: ASPIRIN EC 81 MG TAB PO SCH (10:00)
[2020-09-01] MEDS ORDERED: amLODIPine 5 MG TAB PO SCH (10:00)
[2020-09-01] MEDS ORDERED: FAMOTIDINE 20 MG/2 ML INJ IV SCH (10:00)
[2020-09-01] MEDS: ENOXAPARIN 40 MG/0.4 ML INJ SUB-Q SCH ×2 (10:14→12:32)
--- NOTE | 2020-09-01 10:35 | Consultation ---
History of Present Illness Consult date: 09/01/20 Requesting physician: DONYA CHERRY Consult reason: chest pain History of present illness: 59-year-old female with morbid obesity hypertension has chest pain from her belly to her neck. Enzymes have been negative x2. Patient states following with her primary care doctor had a stress test a few months ago was normal. Patient is chest pain-free and stomach did feel bloated earlier. Patient states compliance with medication. Patient states able to walk without issue. Patient denies any syncope fever chills nausea vomiting no reproducible symptoms. Past History Past Medical History: hypertension Past Surgical History: , Other (Breast reduction) Social history: no significant social history, lives with family Family history: diabetes, hypertension Medications and Allergies Allergies Allergy/AdvReac Type Severity Reaction Status Date / Time No Known Allergies Allergy Verified 09/30/14 11:27 Home Medications Medication Instructions Recorded Confirmed Last Taken Type amLODIPine 5 mg PO DAILY #90 tab 06/10/16 09/01/20 Unknown Rx Active Meds: Active Medications Acetaminophen (Acetaminophen 325 Mg Tab) 650 mg PO Q4H PRN PRN Reason: Pain MILD(1-3)/Fever >100.5/TERRAZAS Al Hydrox/Mg Hydrox/Simethicone (Alum-Mag Hydroxide-Simethicone [phone]/[phone] Oral Liqd 30 Ml) 30 ml PO Q4H PRN PRN Reason: Indigestion Amlodipine Besylate (Amlodipine 5 Mg Tab) 5 mg PO QDAY LARON Aspirin (Aspirin Ec 81 Mg Tab) 81 mg PO QDAY LARON Enoxaparin Sodium (Enoxaparin 40 Mg/0.4 Ml Inj) 40 mg SUB-Q DAILY LARON; Protocol Last Admin: 09/01/20 10:14 Dose: Not Given Documented by: Famotidine (Famotidine 20 Mg Tab) 20 mg PO BID LARON Hydralazine HCl (Hydralazine 20 Mg/1 Ml Inj) 5 mg IV Q4HR PRN PRN Reason: Hypertension Magnesium Hydroxide (Magnesium Hydroxide (Mom) Oral Liqd Udc) 30 ml PO Q4H PRN PRN Reason: Constipation Nitroglycerin (Nitroglycerin 0.4 Mg Tab Subl) 0.4 mg SL .Q5MIN PRN PRN Reason: Chest Pain Ondansetron HCl (Ondansetron 4 Mg/2 Ml Inj) 4 mg IV Q8H PRN PRN Reason: Nausea And Vomiting Sodium Chloride (Sodium Chloride 0.9% 10 Ml Flush Syringe) 10 ml IV PRN PRN PRN Reason: LINE FLUSH Sodium Chloride (Sodium Chloride 0.9% 10 Ml Flush Syringe) 10 ml IV BID LARON Tramadol HCl (Tramadol 50 Mg Tab) 50 mg PO Q6H PRN PRN Reason: Pain, Moderate (4-6) Trazodone HCl (Trazodone 50 Mg Tab) 50 mg PO QHS PRN PRN Reason: Insomnia Review of Systems All systems: negative (hpi) Physical Examination Vital Signs Temp Pulse Resp BP Pulse Ox 98.7 F 105 H 18 162/64 99 08/31/20 20:36 08/31/20 20:36 08/31/20 20:36 08/31/20 20:36 08/31/20 20:36 General appearance: no acute distress, well-nourished HEENT: Positive: PERRL, Mucus Membranes Moist Neck: Positive: neck supple, trachea midline Cardiac: Positive: Reg Rate and Rhythm, S1/S2. Negative: Audible Murmur Lungs: Positive: clear to auscultation, Normal Breath Sounds Neuro: Positive: Grossly Intact Abdomen: Positive: Soft, Active Bowel Sounds. Negative: Tender, Distended Female genitourinary: deferred Skin: Positive: Clear Incision: Cardiac Cath Site Musculoskeletal: No Pain, Normal Range of Motion Extremities: Present: normal. Absent: edema Results 08/31/20 23:10 08/31/20 23:10 Cardiac Enzymes 08/31/20 Range/Units 23:10 AST 14 (5-40) units/L Coagulation 08/31/20 Range/Units 23:10 PT 12.4 (12.2-14.9) Sec. INR 0.94 (0.87-1.13) APTT 28.1 (24.2-36.6) Sec. CBC 08/31/20 Range/Units 23:10 WBC 7.4 (4.5-11.0) K/mm3 RBC 4.93 (3.65-5.03) M/mm3 Hgb 12.6 (10.1-14.3) gm/dl Hct 38.2 (30.3-42.9) % Plt Count 269 (140-440) K/mm3 Lymph # (Auto) 2.7 (1.2-5.4) K/mm3 [place] # (Auto) 0.7 (0.0-0.8) K/mm3 Eos # (Auto) 0.2 (0.0-0.4) K/mm3 Baso # (Auto) 0.1 (0.0-0.1) K/mm3 Comprehensive Metabolic Panel 08/31/20 Range/Units 23:10 Sodium 141 (137-145) mmol/L Potassium 4.3 (3.6-5.0) mmol/L Chloride 100.6 (98-107) mmol/L Carbon Dioxide 31 H (22-30) mmol/L BUN 11 (7-17) mg/dL Creatinine 0.8 (0.6-1.2) mg/dL Glucose 86 (65-100) mg/dL Calcium 9.9 (8.4-10.2) mg/dL AST 14 (5-40) units/L ALT 15 (7-56) units/L Alkaline Phosphatase 84 (35-129) units/L Total Protein 7.8 (6.3-8.2) g/dL Albumin 4.2 (3.9-5) g/dL - Imaging and Cardiology Echo: pending EKG interpretations - Telemetry EKG Rhythm: Sinus Rhythm (Sinus rhythm nonspecific ST-T) Assessment and Plan 59-year-old patient with atypical chest pain hypertension negative cardiac enzymes EKG sinus rhythm nonspecific ST-T's patient had a recent stress test. Patient is able to ambulate without issue. Treat possible as GI. Follow-up echocardiogram if normal may be discharged from cardiovascular point of view blood pressure control with amlodipine 5 mg - Patient Problems (1) Acute chest pain Current Visit: Yes Status: Acute (2) Hypertension Current Visit: Yes Status: Acute
--- NOTE | 2020-09-01 11:14 | Discharge Summary ---
Providers - Providers Date of Admission: 09/01/20 04:29 Date of discharge: 09/01/20 Attending physician: DONYA CHERRY 09/01/20 04:32 Consult to Physician [CONS] Stat Comment: Consulting Provider: JONAH FELIX Physician Instructions: Reason For Exam: chest pain Primary care physician: WILLIAM HECTOR Hospitalization Condition: Good Hospital course: 59-year-old female patient with history of hypertension presents to the emergency department with complaints of chest pain occurring tonight. Patient states she developed a "heavy" sensation in her chest after getting out of the shower tonight. She states this episode lasted approximately 20 minutes before resolving spontaneously. Patient recently began taking hydrochlorothiazide for hypertension. No other recent medication changes. No history of hyperlipidemia, diabetes, tobacco use. No known history of coronary artery disease. Hospital course ED work-up shows WBC 7.4, hemoglobin 12.6, platelets 629, D-dimer 135, sodium 141. Potassium 4.3 creatinine 0.8, BUN 11, troponin negative, calcium 9.9, serum glucose 86, magnesium 2.0. Checks x-ray showed no acute abnormality. Patient seen in ED at bedside. Patient is on room air. Patient alert and oriented x3. Patient said she came in due to chest pain. Patient denies chest pain at the time of this assessment. EKG was done and was not abnormal patient is admitted to rule out ischemic heart disease. Patient reported history of high blood pressure, breast reduction surgery, and . Patient denies tobacco, alcohol, illicit drug use. Patient not in acute distress. Echo and stress test ordered. Cardiology consulted She had echocardiogram which showed normal EF. Etiology of her chest pain could be GI related. I will refer her to see a GI physician for possible EGD with manometry to rule out GERD and Esophageal spasm. I will start her on proton pump inhibitors for now She agrees with management Disposition: DC-01 TO HOME OR SELFCARE Final Discharge Diagnosis (Prints w/discharge instructions): Chest pain - GI related Time spent for discharge: 25 mins Core Measure Documentation - Palliative Care Palliative Care/ Comfort Measures: Not Applicable - Core Measures Any of the following diagnoses?: none Exam - Constitutional Vitals: Temp Pulse Resp BP Pulse Ox 98.8 F 88 18 134/82 100 09/01/20 07:40 09/01/20 07:40 09/01/20 07:40 09/01/20 07:40 09/01/20 07:40 General appearance: Present: no acute distress, well-nourished - EENT Eyes: Present: PERRL ENT: hearing intact, clear oral mucosa - Neck Neck: Present: supple, normal ROM - Respiratory Respiratory effort: normal Respiratory: bilateral: CTA - Cardiovascular Heart Sounds: Present: S1 & S2. Absent: rub, click - Extremities Extremities: pulses symmetrical, No edema Peripheral Pulses: within normal limits - Abdominal General gastrointestinal: Present: soft, non-tender, non-distended, normal bowel sounds Female genitourinary: Present: normal - Integumentary Integumentary: Present: clear, warm, dry - Musculoskeletal Musculoskeletal: gait normal, strength equal bilaterally - Psychiatric Psychiatric: appropriate mood/affect, intact judgment & insight - Neurologic Neurologic: CNII-XII intact, moves all extremities Plan Additional Instructions: Continue pantoprazole for now. Follow up with a gastroenterology in the office in 1-2 weeks Follow up with: WILLIAM HECTOR MD [Primary Care Provider] - 3-5 Days FERDINAND COOLEY MD [Staff Physician] - 7 Days Prescriptions: amLODIPine 5 mg PO DAILY #30 tab Pantoprazole [Protonix TAB] 40 mg PO QDAY #30 tablet
[2020-09-01 17:01] VITALS: BP 147/85
[2020-09-01] MEDS ORDERED: FAMOTIDINE 20 MG TAB PO SCH (22:00)
--- NOTE | 2020-09-02 10:44 | Electrocardiograph Report ---
[facility] Test Date: 2020-08-31 Test Time: 20:50:11 Pat Name: ANNABELLE MORENO Department: Room: A484 1 Gender: F Human Resources Officer: SHAQ : 1960 Requested By: MIRYAM GEE Order Number: [id number] Reading MD: Tennille Davison Measurements Intervals [place] Rate: 98 P: 53 [place]: 117 QRS: -25 QRSD: 76 T: 47 QT: 359 QTc: 459 Interpretive Statements Sinus rhythm Left ventricular hypertrophy No previous ECG available for comparison Electronically Signed On 09-02-2020 10:44:36 EDT by Tennille Davison
--- NOTE | 2020-09-02 10:46 | Electrocardiograph Report ---
[facility] Test Date: 2020-09-01 Test Time: 04:58:18 Pat Name: ANNABELLE MORENO Department: Room: A484 1 Gender: F Digital Art Director: : 1960 Requested By: KAVITHA MISTRY Order Number: [id number] Reading MD: Tennille Davison Measurements Intervals [place] Rate: 87 P: 48 [place]: 107 QRS: -11 QRSD: 76 T: 23 QT: 394 QTc: 475 Interpretive Statements Sinus rhythm Left ventricle hypertrophy Compared to ECG 08/31/2020 20:50:11 No significant changes Electronically Signed On 09-02-2020 10:46:19 EDT by Tennille Davison
== END 2020-09-01 18:44 | disposition home or self-care (01) ==
LOC: ED 20:34 → 4A 09-01 04:29
PROVIDERS: ADMIT Internal Medicine Geriatric Medicine; ATTEND Internal Medicine
DX: R07.89 Other chest pain (principal); I10 Essential (primary) hypertension; R94.31 Abnormal electrocardiogram [ECG] [EKG]; R42 Dizziness and giddiness; Z98.891 History of uterine scar from previous surgery; Z98.51 Tubal ligation status; Z98.890 Other specified postprocedural states
CPT/HCPCS: 36415; 71046; 80053; 83735; 84484; 85025; 85379; 85610; 85730; 93005; 93306; 96372; 96374; 99285; G0378; J1650

== ENCOUNTER 2020-11-14 17:13 | Emergency (ER) | payer MEDICAID ==
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
[2020-11-14] MEDS ORDERED: amLODIPine 5 MG TAB PO ONE (17:35)
[2020-11-14] MEDS ORDERED: hydrOXYzine PAMOATE 25 MG CAP PO ONE (17:35)
[2020-11-14] MEDS ORDERED: SODIUM CHLORIDE 0.9% 1000 ML 1,000 ML IV ONE (17:42)
[2020-11-14] MEDS ORDERED: ONDANSETRON 4 MG/2 ML INJ IV ONE (17:42)
[2020-11-14] MEDS ORDERED: ONDANSETRON 4 MG/2 ML INJ ONE (17:42)
[2020-11-14 18:07] LABS: Basophils # (Auto) 0.1 K/mm3 (0.0-0.1); Basophils % (Auto) 1.6 % (0.0-1.8); Eosinophils # (Auto) 0.1 K/mm3 (0.0-0.4); Eosinophils % (Auto) 1.2 % (0.0-4.3); Hematocrit 39.1 % (30.3-42.9); Hemoglobin 12.5 gm/dl (10.1-14.3); Lymphocytes # (Auto) 2.3 K/mm3 (1.2-5.4); Lymphocytes % (Auto) 28.5 % (13.4-35.0); Mean Corpuscular HGB Conc 32 % (30-34); Mean Corpuscular Volume 77 fl (79-97); Monocytes # (Auto) 0.5 K/mm3 (0.0-0.8); Monocytes % (Auto) 5.6 % (0.0-7.3); Platelet Count 290 K/mm3 (140-440); Red Blood Count 5.07 M/mm3 (3.65-5.03); Red Cell Distribution Width 15.1 % (13.2-15.2)
[2020-11-14 18:26] LABS: Alanine Aminotransferase 16 units/L (7-56); Albumin 4.1 g/dL (3.9-5); Blood Urea Nitrogen 9 mg/dL (7-17); Calcium 9.3 mg/dL (8.4-10.2); Hemolysis Index 12
[2020-11-14 18:32] LABS: BUN/Creatinine Ratio 15
--- NOTE | 2020-11-14 18:46 | XRay Report ---
CHEST 1 VIEW 11/14/2020 6:34 PM INDICATION / CLINICAL INFORMATION: Tachycardia and hypoxia. COMPARISON: 08/31/20. FINDINGS: SUPPORT DEVICES: None. HEART / MEDIASTINUM: There is borderline cardiomegaly. Pulmonary vasculature is normal. The aorta is normal in caliber. LUNGS / PLEURA: No significant pulmonary or pleural abnormality. No pneumothorax. ADDITIONAL FINDINGS: No significant additional findings. IMPRESSION: No acute abnormality or significant change. Signer Name: Chaitanya Landa MD Signed: 11/14/2020 6:42 PM Workstation Name: [id number]
[2020-11-14] MEDS ORDERED: POTASSIUM CHLORIDE ER 20 MEQ TAB PO ONE (19:39)
[2020-11-14 20:33] VITALS: BP 124/74
--- NOTE | 2020-11-15 18:00 | Electrocardiograph Report ---
[facility] Test Date: 2020-11-14 Test Time: 17:29:38 Pat Name: ANNABELLE MORENO Department: Room: Gender: F Director Career: [id number] : 1960 Requested By: ROSIBEL LINDO Order Number: [id number] Reading MD: Tennille Davison Measurements Intervals [place] Rate: 118 P: 143 [place]: 120 QRS: 206 QRSD: 80 T: 128 QT: 343 QTc: 481 Interpretive Statements Sinus or ectopic atrial tachycardia Right axis deviation or consider limb lead malposition Abnormal T, consider ischemia, lateral leads Compared to ECG 09/01/2020 04:58:18 The limb leads are malplaced on the current ECG Electronically Signed On 11-15-2020 18:00:21 EDT by Tennille Davison
== END 2020-11-14 20:32 | disposition home or self-care (01) ==
LOC: ED 17:13
DX: E87.6 Hypokalemia (principal); E86.0 Dehydration; I10 Essential (primary) hypertension; Z79.899 Other long term (current) drug therapy; Z98.890 Other specified postprocedural states
CPT/HCPCS: 36415; 71045; 80053; 84443; 85025; 85379; 93005; 96361; 96374; 99284; J2405; Q0177

== ENCOUNTER 2021-01-14 13:40 | Emergency (ER) | payer MEDICAID ==
[2021-01-14 14:29] LABS: Alanine Aminotransferase 18 units/L (7-56); Albumin 4.3 g/dL (3.9-5); Blood Urea Nitrogen 8 mg/dL (7-17); Calcium 10.5 mg/dL (8.4-10.2); Hemolysis Index 2
[2021-01-14 14:30] LABS: BUN/Creatinine Ratio 13
--- NOTE | 2021-01-14 14:34 | XRay Report ---
CHEST 1 VIEW 01/14/2021 1:23 PM INDICATION / CLINICAL INFORMATION: Chest Pain. COMPARISON: 11/14/2020 FINDINGS: SUPPORT DEVICES: None. HEART / MEDIASTINUM: No significant abnormality. LUNGS / PLEURA: No significant pulmonary or pleural abnormality. No pneumothorax. ADDITIONAL FINDINGS: No significant additional findings. IMPRESSION: 1. No acute findings. Signer Name: Gerson Wilson MD Signed: 01/14/2021 2:30 PM Workstation Name: [id number]
[2021-01-14 15:20] LABS: Basophils # (Auto) 0.1 K/mm3 (0.0-0.1); Basophils % (Auto) 0.8 % (0.0-1.8); Eosinophils # (Auto) 0.1 K/mm3 (0.0-0.4); Eosinophils % (Auto) 0.7 % (0.0-4.3); Hematocrit 37.6 % (30.3-42.9); Hemoglobin 11.8 gm/dl (10.1-14.3); Lymphocytes # (Auto) 2.3 K/mm3 (1.2-5.4); Lymphocytes % (Auto) 33.6 % (13.4-35.0); Mean Corpuscular HGB Conc 31 % (30-34); Mean Corpuscular Volume 75 fl (79-97); Monocytes # (Auto) 0.5 K/mm3 (0.0-0.8); Monocytes % (Auto) 7.7 % (0.0-7.3); Platelet Count 395 K/mm3 (140-440); Red Blood Count 4.99 M/mm3 (3.65-5.03); Red Cell Distribution Width 15.2 % (13.2-15.2)
--- NOTE | 2021-01-14 17:35 | Emergency Department Report ---
ED Chest Pain HPI - General Chief Complaint: Chest Pain Stated Complaint: CHEST PRESSURE, BACK, RAPID PULSE PUI?: No Time Seen by Provider: 01/14/21 14:15 Source: patient Mode of arrival: Ambulatory Limitations: No Limitations - History of Present Illness Initial Comments: CC: I want to make sure that I do not have a stroke HPI: This is a 60 yo female with hx of GERD H Pylori who presents with left sided swelling and discomfort. Patient felt swelling at the left trapezious region. She has had had chest burning typical of GERD. She has had poor appetite. Denies fever, headache, cough, myalgias. she is not vaccinated against COVID 19 Complaint: chest pain -: Gradual, days(s) (1 week several days) Onset: during rest Pain Location: other (Left trapezius region and radiating to the left chest) Severity: mild Severity scale (0 -10): 7 Quality: aching Consistency: constant Improves With: nothing Worsens With: other (Palpation) - Related Data Previous Rx's Medication Instructions Recorded Last Taken Type Pantoprazole [Protonix TAB] 40 mg PO QDAY #30 tablet 09/01/20 Unknown Rx amLODIPine 5 mg PO DAILY #30 tab 09/01/20 Unknown Rx Potassium Chloride [K-Dur] 10 meq PO QDAY 30 Days #30 tablet 11/14/20 Unknown Rx Allergies Allergy/AdvReac Type Severity Reaction Status Date / Time No Known Allergies Allergy Verified 01/14/21 13:58 Heart Score - HEART Score History: Slightly suspicious EKG: Normal Age: 45-65 Risk factors: 1-2 risk factors Troponin: < normal limit HEART Score: 2 - EKG Read Time Time EKG Completed: 13:47 EKG Read Time: 13:56 - Critical Actions Critical Actions: 0-3 pts:0.9-1.7%risk of adverse cardiac event.Candidate for discharge ED Review of Systems ROS: Stated complaint: CHEST PRESSURE, BACK, RAPID PULSE Other details as noted in HPI Comment: All other systems reviewed and negative Constitutional: malaise. denies: chills, fever ENT: denies: throat pain, dental pain, hearing loss, epistaxis Respiratory: denies: cough, shortness of breath Cardiovascular: chest pain. denies: palpitations Gastrointestinal: nausea, diarrhea. denies: abdominal pain ED Past Medical Hx - Past Medical History Previous Medical History?: Yes Hx Hypertension: Yes Additional medical history: Prediabetes, uterine polyps - Surgical History Past Surgical History?: Yes Hx Breast Surgery: Yes (reduction) Additional Surgical History: , Tubaligation - Social History Smoking Status: Never Smoker Substance Use Type: None - Medications Home Medications: Home Medications Medication Instructions Recorded Confirmed Last Taken Type Pantoprazole [Protonix TAB] 40 mg PO QDAY #30 tablet 09/01/20 Unknown Rx amLODIPine 5 mg PO DAILY #30 tab 09/01/20 Unknown Rx Potassium Chloride [K-Dur] 10 meq PO QDAY 30 Days #30 tablet 11/14/20 Unknown Rx ED Physical Exam - General Limitations: No Limitations General appearance: alert, in no apparent distress - Head Head exam: Present: atraumatic, normocephalic - Eye Eye exam: Present: normal appearance - ENT ENT exam: Present: mucous membranes moist - Neck Neck exam: Present: normal inspection, full ROM - Respiratory Respiratory exam: Present: normal lung sounds bilaterally. Absent: respiratory distress, wheezes, rhonchi, stridor - Cardiovascular Cardiovascular Exam: Present: regular rate, normal rhythm, normal heart sounds. Absent: systolic murmur, diastolic murmur, rubs, gallop - GI/Abdominal GI/Abdominal exam: Present: soft, normal bowel sounds. Absent: distended, tenderness, guarding, rebound - Extremities Exam Extremities exam: Present: normal inspection - Back Exam Back exam: Present: normal inspection - Neurological Exam Neurological exam: Present: alert, oriented X3 - Psychiatric Psychiatric exam: Present: normal affect, normal mood - Skin Skin exam: Present: warm, dry, intact, normal color. Absent: rash ED Course Vital Signs 01/14/21 01/14/21 01/14/21 14:03 14:45 14:50 Temperature 99.6 F Pulse Rate 120 H 105 H Respiratory 18 18 Rate Blood Pressure 140/97 [Left] O2 Sat by Pulse 99 100 100 Oximetry MARYBETH score - Marybeth Score Age > 65: (0) No Aspirin use within the Past 7 Days: (0) No 3 or more CAD Risk Factors: (1) Yes 2 or more Angina events in past 24 hrs: (0) No Known CAD with more than 50% Stenosis: (0) No Elevated Cardiac Markers: (0) No ST Deviation Greater than 0.5mm: (0) No MARYBETH Score: 1 ED Medical Decision Making - Lab Data Result diagrams: 01/14/21 12:55 01/14/21 12:55 Laboratory Results - last 24 hr 01/14/21 01/14/21 12:55 12:55 WBC 6.9 RBC 4.99 Hgb 11.8 Hct 37.6 MCV 75 L MCH 24 L MCHC 31 RDW 15.2 Plt Count 395 Lymph % (Auto) 33.6 [place] % (Auto) 7.7 H Eos % (Auto) 0.7 Baso % (Auto) 0.8 Lymph # (Auto) 2.3 [place] # (Auto) 0.5 Eos # (Auto) 0.1 Baso # (Auto) 0.1 Seg Neutrophils % 57.2 Seg Neutrophils # 4.0 Sodium 137 Potassium 3.6 Chloride 102.4 Carbon Dioxide 24 Anion Gap 14 BUN 8 Creatinine 0.6 Estimated GFR > 60 BUN/Creatinine Ratio 13 Glucose 156 H Calcium 10.5 H Total Bilirubin 0.90 AST 15 ALT 18 Alkaline Phosphatase 75 Troponin T < 0.010 Total Protein 8.6 H Albumin 4.3 Albumin/Globulin Ratio 1.0 - EKG Data -: EKG Interpreted by Ct EKG shows normal: sinus rhythm, axis, intervals, QRS complexes, ST-T waves Rate: tachycardia - EKG Data Interpretation: normal EKG (Exception sinus tachycardia) - Radiology Data Radiology results: report reviewed No acute findings according to radiology report: Chest radiograph - Medical Decision Making Chest wall pain with nausea diarrhea nonspecific generalized complaints strongly recommended COVID-19 testing. Referred to [facility] for outpatient cardiac risk ratification. No indication of pulmonary embolism. Chest x-ray without pneumonia. EKG troponin ruled out AMI. CBC chemistry troponin EKG x-ray unremarkable. Patient is discharged home. Cardiology referral faxed to [facility]. - Differential Diagnosis GERD, COVID-19 infection, chest wall pain, lipoma Critical care attestation.: If time is entered above; I have spent that time in minutes in the direct care of this critically ill patient, excluding procedure time. ED Disposition Clinical Impression: GERD (gastroesophageal reflux disease) Disposition: HOME / SELF CARE / HOMELESS Is pt being admited?: No Does the pt Need Aspirin: No Condition: Stable Referrals: MYA CANSECO MD [Staff Physician] - 3-5 Days
[2021-01-14 17:51] VITALS: BP 121/78
--- NOTE | 2021-01-17 09:41 | Electrocardiograph Report ---
[facility] Test Date: 2021-01-14 Test Time: 13:47:58 Pat Name: ANNABELLE MORENO Department: Room: Gender: F Digital Media Coordinator: CARMINE : 1960 Requested By: ROSIBEL LINDO Order Number: [id number] Reading MD: Ford Perla Measurements Intervals [place] Rate: 121 P: 44 [place]: 95 QRS: -9 QRSD: 66 T: 28 QT: 306 QTc: 434 Interpretive Statements Sinus tachycardia Compared to ECG 11/14/2020 17:29:38 T-wave abnormality no longer present Possible ischemia no longer present Electronically Signed On 01-17-2021 9:41:50 EDT by Ford Perla
== END 2021-01-14 18:16 | disposition home or self-care (01) ==
LOC: ED 13:40
DX: K21.9 Gastro-esophageal reflux disease without esophagitis (principal); I10 Essential (primary) hypertension; R73.03 Prediabetes; N84.0 Polyp of corpus uteri; Z98.890 Other specified postprocedural states
CPT/HCPCS: 36415; 71045; 80053; 84484; 85025; 93005; 99284

== ENCOUNTER 2021-01-22 12:36 | Emergency (ER) | payer MEDICAID ==
--- NOTE | 2021-01-22 13:53 | Emergency Department Report ---
ED Female HPI - General Chief complaint: Vaginal Bleeding Stated complaint: HEAVY BLEEDING LIGHT HEADED Time Seen by Provider: 01/22/21 13:24 Source: patient Mode of arrival: Ambulatory Limitations: No Limitations - History of Present Illness Initial comments: 60 year old female with pmhx of uterine fibroids, uterine polyps, and hypertension presents to the ER today with complaints of abnormal vaginal bleeding. Patient states that she started bleeding about 3 to 4 days ago. She states that initially the bleeding was light but yesterday after she took 2 baby aspirin, she noticed that the bleeding got heavier. She states that yesterday she had to change about 8 pads. Today she is only had to change 2. She reports passage of clots. She denies any abdominal pain. She reports that she felt a little lightheaded today. 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 She is currently on Provera 10 mg daily for abnormal bleeding which she started about 3 weeks ago. She states that she never had to have a blood transfusion. She is not on any blood thinners. MD Complaint: vaginal bleeding -: days(s) (3-4) - Related Data Previous Rx's Medication Instructions Recorded Last Taken Type Pantoprazole [Protonix TAB] 40 mg PO QDAY #30 tablet 09/01/20 Unknown Rx amLODIPine 5 mg PO DAILY #30 tab 09/01/20 Unknown Rx Potassium Chloride [K-Dur] 10 meq PO QDAY 30 Days #30 tablet 11/14/20 Unknown Rx Allergies Allergy/AdvReac Type Severity Reaction Status Date / Time No Known Allergies Allergy Verified 01/14/21 13:58 ED Review of Systems ROS: Stated complaint: HEAVY BLEEDING LIGHT HEADED Other details as noted in HPI Comment: All other systems reviewed and negative Constitutional: denies: chills, fever Eyes: denies: eye pain, eye discharge, vision change ENT: denies: ear pain, throat pain, dental pain, hearing loss, epistaxis, congestion Respiratory: denies: cough, shortness of breath, SOB with exertion, SOB at rest, wheezing Cardiovascular: denies: chest pain, palpitations, dyspnea on exertion, edema, syncope, paroxysmal nocturnal dyspnea Gastrointestinal: denies: abdominal pain, nausea, vomiting, diarrhea, constipation, hematemesis, hematochezia Genitourinary: abnormal menses, other (vaginal bleeding ). denies: urgency, dysuria, frequency, hematuria, discharge Musculoskeletal: denies: back pain, joint swelling, arthralgia Skin: denies: rash, lesions, change in color, change in hair/nails, pruritus Neurological: other (Lightheaded ). denies: headache, weakness, numbness, paresthesias, confusion, abnormal gait, vertigo Psychiatric: denies: anxiety, depression, auditory hallucinations, visual hallucinations, homicidal thoughts, suicidal thoughts Hematological/Lymphatic: denies: easy bleeding, easy bruising, swollen glands ED Past Medical Hx - Past Medical History Previous Medical History?: Yes Hx Hypertension: Yes Additional medical history: Prediabetes, uterine polyps - Surgical History Past Surgical History?: Yes Hx Breast Surgery: Yes (reduction) Additional Surgical History: , Tubaligation - Social History Smoking Status: Never Smoker Substance Use Type: None - Medications Home Medications: Home Medications Medication Instructions Recorded Confirmed Last Taken Type Pantoprazole [Protonix TAB] 40 mg PO QDAY #30 tablet 09/01/20 Unknown Rx amLODIPine 5 mg PO DAILY #30 tab 09/01/20 Unknown Rx Potassium Chloride [K-Dur] 10 meq PO QDAY 30 Days #30 tablet 11/14/20 Unknown Rx ED Physical Exam - General Limitations: No Limitations General appearance: alert, in no apparent distress - Head Head exam: Present: atraumatic, normocephalic, normal inspection - Eye Eye exam: Present: normal appearance, PERRL, EOMI Pupils: Present: normal accommodation - ENT ENT exam: Present: normal exam, mucous membranes moist, TM's normal bilaterally - Neck Neck exam: Present: normal inspection, full ROM - Respiratory Respiratory exam: Present: normal lung sounds bilaterally. Absent: respiratory distress, wheezes, rales, rhonchi - Cardiovascular Cardiovascular Exam: Present: regular rate, normal rhythm, normal heart sounds - GI/Abdominal GI/Abdominal exam: Present: soft. Absent: distended, tenderness, guarding, rebound - Neurological Exam Neurological exam: Present: alert, oriented X3, CN II-XII intact, normal gait - Psychiatric Psychiatric exam: Present: normal affect, normal mood - Skin Skin exam: Present: intact ED Course Vital Signs 01/22/21 01/22/21 13:18 14:53 Temperature 98.7 F 98.1 F Pulse Rate 108 H 102 H Respiratory 16 16 Rate Blood Pressure 169/102 152/96 [Left] O2 Sat by Pulse 96 99 Oximetry ED Medical Decision Making - Lab Data Result diagrams: 01/22/21 14:09 01/22/21 14:09 - Medical Decision Making 1459: Unremarkable including normal H&H. CMP unremarkable. Patient currently resting comfortably. She is not in any acute distress. She is ambulatory with a normal gait. She is neurologically intact. Her vital signs are stable. At this time there is no indication for admission, or specialist consult. Recommend to patient that she follows up with her PNEUMATIC SYSTEM CONVEYOR OPERATOR next week. She understands to return if her symptoms changes or worsens in any way. - Differential Diagnosis Severe anemia, thrombocytopenia, metabolic abnormality Critical care attestation.: If time is entered above; I have spent that time in minutes in the direct care of this critically ill patient, excluding procedure time. ED Disposition Clinical Impression: Dysfunctional uterine bleeding Disposition: 01 HOME / SELF CARE / HOMELESS Is pt being admited?: No Does the pt Need Aspirin: No Condition: Stable Instructions: Abnormal Uterine Bleeding Additional Instructions: I recommend that you follow-up with your PNEUMATIC SYSTEM CONVEYOR OPERATOR next week. Return to ED if symptoms worsens or changes in anyway. Referrals: PRIMARY CARE, [Referring] - 3-5 Days Time of Disposition: 14:51
[2021-01-22 14:35] LABS: Basophils % (Auto) 0.7 % (0.0-1.8); Eosinophils % (Auto) 0.6 % (0.0-4.3); Hematocrit 33.1 % (30.3-42.9); Hemoglobin 10.6 gm/dl (10.1-14.3); Lymphocytes # (Auto) 1.3 K/mm3 (1.2-5.4); Lymphocytes % (Auto) 20.2 % (13.4-35.0); Mean Corpuscular HGB Conc 32 % (30-34); Mean Corpuscular Volume 77 fl (79-97); Monocytes # (Auto) 0.4 K/mm3 (0.0-0.8); Monocytes % (Auto) 6.5 % (0.0-7.3); Platelet Count 308 K/mm3 (140-440); Red Blood Count 4.33 M/mm3 (3.65-5.03); Red Cell Distribution Width 15.6 % (13.2-15.2)
[2021-01-22 14:44] LABS: Alanine Aminotransferase 17 units/L (7-56); Blood Urea Nitrogen 6 mg/dL (7-17); Calcium 9.1 mg/dL (8.4-10.2); Hemolysis Index 0
[2021-01-22 14:45] LABS: BUN/Creatinine Ratio 9
[2021-01-22 14:54] VITALS: BP 152/96
== END 2021-01-22 14:59 | disposition home or self-care (01) ==
LOC: ED 12:36
DX: N93.8 Other specified abnormal uterine and vaginal bleeding (principal); I10 Essential (primary) hypertension
CPT/HCPCS: 36415; 80053; 84703; 85025; 99283

== ENCOUNTER 2021-01-23 18:26 | Emergency (ER) | payer MEDICAID ==
[2021-01-23 19:02] VITALS: BP 146/85
--- NOTE | 2021-01-23 19:14 | Emergency Department Report ---
ED General Adult HPI - General Chief complaint: Chest Pain Stated complaint: LT SIDE SHOULDER, CHEST TIGHT FACE Time Seen by Provider: 01/23/21 19:02 Source: patient Mode of arrival: Ambulatory Limitations: No Limitations - History of Present Illness Initial comments: Patient is 60 years old female with history of hypertension and prediabetes. Patient also history of uterine polyps. Patient presented to the ER complaining of left sided chest pain left shoulder pain and left neck pain since last night. Patient described her pain as sharp on and off. Patient stated that she went to the fire department this morning and found that her blood pressure was 210/111. Patient denied any shortness of breath. No fever or chills. No focal weakness numbness or tingling sensation. Patient also denied any headache. - Related Data Previous Rx's Medication Instructions Recorded Last Taken Type Pantoprazole [Protonix TAB] 40 mg PO QDAY #30 tablet 09/01/20 Unknown Rx amLODIPine 5 mg PO DAILY #30 tab 09/01/20 Unknown Rx Potassium Chloride [K-Dur] 10 meq PO QDAY 30 Days #30 tablet 11/14/20 Unknown Rx amLODIPine 10 mg PO DAILY #30 tab 01/23/21 Unknown Rx Allergies Allergy/AdvReac Type Severity Reaction Status Date / Time No Known Allergies Allergy Verified 01/14/21 13:58 ED Review of Systems ROS: Stated complaint: LT SIDE SHOULDER, CHEST TIGHT FACE Other details as noted in HPI Comment: All other systems reviewed and negative Constitutional: denies: chills, fever Respiratory: denies: cough, shortness of breath, SOB with exertion, SOB at rest Cardiovascular: chest pain. denies: palpitations Gastrointestinal: denies: abdominal pain, nausea, vomiting, diarrhea, constipation, hematemesis, melena, hematochezia Musculoskeletal: denies: back pain Neurological: denies: headache, weakness, numbness, paresthesias, confusion ED Past Medical Hx - Past Medical History Hx Hypertension: Yes Additional medical history: Prediabetes, uterine polyps - Surgical History Hx Breast Surgery: Yes (reduction) Additional Surgical History: , Tubaligation - Social History Smoking Status: Never Smoker Substance Use Type: None - Medications Home Medications: Home Medications Medication Instructions Recorded Confirmed Last Taken Type Pantoprazole [Protonix TAB] 40 mg PO QDAY #30 tablet 09/01/20 Unknown Rx amLODIPine 5 mg PO DAILY #30 tab 09/01/20 Unknown Rx Potassium Chloride [K-Dur] 10 meq PO QDAY 30 Days #30 tablet 11/14/20 Unknown Rx amLODIPine 10 mg PO DAILY #30 tab 01/23/21 Unknown Rx ED Physical Exam - General Limitations: No Limitations General appearance: alert, in no apparent distress - Head Head exam: Present: atraumatic, normocephalic, normal inspection - Eye Eye exam: Present: normal appearance, PERRL - ENT ENT exam: Present: normal exam, normal orophraynx, mucous membranes moist - Neck Neck exam: Present: normal inspection, full ROM. Absent: tenderness, meningismus - Respiratory Respiratory exam: Present: normal lung sounds bilaterally - Cardiovascular Cardiovascular Exam: Present: regular rate, normal rhythm, normal heart sounds - GI/Abdominal GI/Abdominal exam: Present: soft, normal bowel sounds. Absent: distended, tenderness, guarding, rebound, rigid, organomegaly, mass, bruit, pulsatile mass, hernia - Extremities Exam Extremities exam: Present: normal inspection, full ROM, normal capillary refill. Absent: tenderness, pedal edema, joint swelling, calf tenderness - Back Exam Back exam: Present: normal inspection, full ROM. Absent: CVA tenderness (R), CVA tenderness (L) - Neurological Exam Neurological exam: Present: alert, oriented X3, CN II-XII intact, normal gait, reflexes normal. Absent: motor sensory deficit - Psychiatric Psychiatric exam: Present: normal mood - Skin Skin exam: Present: warm, intact, normal color ED Course Vital Signs 01/23/21 19:01 Temperature 97.9 F Pulse Rate 106 H Respiratory 16 Rate Blood Pressure 146/85 [Right] O2 Sat by Pulse 99 Oximetry ED Medical Decision Making - Lab Data Result diagrams: 01/23/21 19:16 01/23/21 19:16 - EKG Data -: EKG Interpreted by Ms EKG shows normal: sinus rhythm Rate: tachycardia - EKG Data Interpretation: no acute changes - Radiology Data Radiology results: report reviewed - Medical Decision Making Patient is 60 years old female with history of hypertension and prediabetes. Patient also history of uterine polyps. Patient presented to the ER complaining of left sided chest pain left shoulder pain and left neck pain since last night. Patient described her pain as sharp on and off. Patient stated that she went to the fire department this morning and found that her blood pressure was 210/111. Patient denied any shortness of breath. No fever or chills. No focal weakness numbness or tingling sensation. Patient also denied any headache. EKG showed no ST elevation. Labs reviewed and is unremarkable including a negative troponin x2. Chest x-ray is unremarkable. Patient symptoms most likely related to malignant hypertension however patient strongly advised to follow-up with her primary care physician for outpatient cardiac work-up. Debbie ent advised to return to the ER if she develop any new symptoms. Critical care attestation.: If time is entered above; I have spent that time in minutes in the direct care o f this critically ill patient, excluding procedure time. ED Disposition Clinical Impression: Acute chest pain, Malignant hypertension Disposition: HOME / SELF CARE / HOMELESS Is pt being admited?: No Condition: Stable Instructions: Chest Pain (ED), Hypertension (ED), Nonspecific Chest Pain, Adult, Managing Your Hypertension Prescriptions: amLODIPine 10 mg PO DAILY #30 tab Referrals: PRIMARY CARE, [Referring] - 3-5 Days
[2021-01-23 19:37] LABS: Hematocrit 30.4 % (30.3-42.9); Mean Corpuscular HGB Conc 33 % (30-34); Mean Corpuscular Volume 75 fl (79-97); Platelet Count 311 K/mm3 (140-440); Red Blood Count 4.03 M/mm3 (3.65-5.03); Red Cell Distribution Width 14.9 % (13.2-15.2)
--- NOTE | 2021-01-23 19:51 | XRay Report ---
. CHEST 2 VIEWS INDICATION: Chest Pain. COMPARISON: 01/14/2021 FINDINGS: SUPPORT DEVICES: None. HEART: Within normal limits. LUNGS/PLEURA: Minimal patchy medial right basilar airspace disease with otherwise clear lungs. No pn eumothorax. ADDITIONAL FINDINGS: None. IMPRESSION: 1. Lung findings as above. Signer Name: Bi Womack MD Signed: 01/23/2021 7:46 PM Workstation Name: [id number]
[2021-01-23 19:52] LABS: Blood Urea Nitrogen 7 mg/dL (7-17); Hemolysis Index 0
[2021-01-23 19:53] LABS: BUN/Creatinine Ratio 12
[2021-01-23 23:38] LABS: Anisocytosis 1+; Hypochromasia 1+; Platelet Estimate Consistent w Auto; Total Cells Counted 100
--- NOTE | 2021-02-07 13:49 | Electrocardiograph Report ---
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
== END 2021-01-23 23:11 | disposition home or self-care (01) ==
LOC: ED 18:26
DX: R07.9 Chest pain, unspecified (principal); I10 Essential (primary) hypertension; R73.03 Prediabetes; N84.0 Polyp of corpus uteri; Z98.890 Other specified postprocedural states
CPT/HCPCS: 36415; 71046; 80048; 84484; 85007; 85025; 93005; 99283

== ENCOUNTER 2021-02-09 15:53 | Emergency (ER) | payer MEDICAID ==
--- NOTE | 2021-02-09 16:40 | Emergency Department Report ---
ED Extremity Problem HPI - General Chief complaint: Extremity Problem,Nontraumatic Stated complaint: LEFT LEG PAIN/BP Time Seen by Provider: 02/09/21 16:23 Source: patient Mode of arrival: Ambulatory Limitations: No Limitations - History of Present Illness Initial comments: 60-year-old female presents to ED with left calf pain x3 days. Patient states i t feels like muscle soreness. She denies any swelling. Patient states she was instructed by her physician to come to the ED to rule out DVT. Patient denies any chest pain or shortness of breath. Patient is tachycardic but states it is because she is nervous about what is going on. MD Complaint: extremity pain -: days(s) (3) Location: left, other (calf) History of Same: No -: Yes myalgia, No arthralgia, No fever, No associated dyspnea, No associated chest pain Quality: other (soreness) Consistency: intermittent Improves with: nothing Worsens with: nothing Associated Symptoms: denies other symptoms - Related Data Previous Rx's Medication Instructions Recorded Last Taken Type Pantoprazole [Protonix TAB] 40 mg PO QDAY #30 tablet 09/01/20 Unknown Rx amLODIPine 5 mg PO DAILY #30 tab 09/01/20 Unknown Rx Potassium Chloride [K-Dur] 10 meq PO QDAY 30 Days #30 tablet 11/14/20 Unknown Rx amLODIPine 10 mg PO DAILY #30 tab 01/23/21 Unknown Rx Naproxen [Naprosyn] 500 mg PO BID #20 tablet 02/09/21 Unknown Rx Allergies Allergy/AdvReac Type Severity Reaction Status Date / Time No Known Allergies Allergy Verified 01/14/21 13:58 ED Review of Systems ROS: Stated complaint: LEFT LEG PAIN/BP Other details as noted in HPI Comment: All other systems reviewed and negative Constitutional: denies: chills, fever Respiratory: denies: shortness of breath Cardiovascular: denies: chest pain Musculoskeletal: as per HPI ED Past Medical Hx - Past Medical History Previous Medical History?: Yes Hx Hypertension: Yes Additional medical history: Prediabetes, uterine polyps - Surgical History Past Surgical History?: Yes Hx Breast Surgery: Yes (reduction) Additional Surgical History: , Tubaligation - Social History Smoking Status: Never Smoker Substance Use Type: None - Medications Home Medications: Home Medications Medication Instructions Recorded Confirmed Last Taken Type Pantoprazole [Protonix TAB] 40 mg PO QDAY #30 tablet 09/01/20 Unknown Rx amLODIPine 5 mg PO DAILY #30 tab 09/01/20 Unknown Rx Potassium Chloride [K-Dur] 10 meq PO QDAY 30 Days #30 tablet 11/14/20 Unknown Rx amLODIPine 10 mg PO DAILY #30 tab 01/23/21 Unknown Rx Naproxen [Naprosyn] 500 mg PO BID #20 tablet 02/09/21 Unknown Rx ED Physical Exam - General Limitations: No Limitations General appearance: alert, in no apparent distress - Head Head exam: Present: atraumatic, normocephalic - Eye Eye exam: Present: normal appearance, EOMI - ENT ENT exam: Present: mucous membranes moist - Neck Neck exam: Present: normal inspection - Respiratory Respiratory exam: Present: normal lung sounds bilaterally. Absent: respiratory distress - Cardiovascular Cardiovascular Exam: Present: normal rhythm, tachycardia - GI/Abdominal GI/Abdominal exam: Absent: distended - Extremities Exam Extremities exam: Present: normal inspection. Absent: pedal edema, calf tenderness - Neurological Exam Neurological exam: Present: alert, oriented X3 - Psychiatric Psychiatric exam: Present: normal affect, normal mood - Skin Skin exam: Present: warm, dry, intact, normal color ED Course Vital Signs 02/09/21 02/09/21 15:56 19:21 Temperature 98.4 F Pulse Rate 136 H 107 H Respiratory 16 16 Rate Blood Pressure 145/88 148/96 [Left] O2 Sat by Pulse 97 98 Oximetry ED Medical Decision Making - Lab Data Result diagrams: 02/09/21 16:43 02/09/21 16:43 - Radiology Data Radiology results: report reviewed, image reviewed - Medical Decision Making Patient sent to ED for evaluation of left calf pain. Leg appears normal. No swelling, no erythema. Ultrasound negative for DVT. Patient initially tachycardic, which patient attributed to being nervous and anxious about being i n the hospital. Repeat vital signs show heart rate has improved from 136 to 107 without intervention. Patient will be discharged at this time. Outpatient follow-up advised, return precautions given. - Differential Diagnosis DVT, myalgia Critical care attestation.: If time is entered above; I have spent that time in minutes in the direct care o f this critically ill patient, excluding procedure time. ED Disposition Clinical Impression: Left leg pain Disposition: HOME / SELF CARE / HOMELESS Is pt being admited?: No Condition: Stable Instructions: Leg Cramps Prescriptions: Naproxen [Naprosyn] 500 mg PO BID #20 tablet Referrals: RITA GARNICA MD [Primary Care Provider] - 3-5 Days Time of Disposition: 19:27
[2021-02-09 17:02] LABS: Basophils % (Auto) 0.6 % (0.0-1.8); Eosinophils % (Auto) 0.5 % (0.0-4.3); Hematocrit 29.1 % (30.3-42.9); Hemoglobin 9.4 gm/dl (10.1-14.3); Lymphocytes # (Auto) 1.5 K/mm3 (1.2-5.4); Lymphocytes % (Auto) 21.4 % (13.4-35.0); Mean Corpuscular HGB Conc 32 % (30-34); Mean Corpuscular Volume 74 fl (79-97); Monocytes # (Auto) 0.5 K/mm3 (0.0-0.8); Monocytes % (Auto) 7.5 % (0.0-7.3); Platelet Count 415 K/mm3 (140-440); Red Blood Count 3.95 M/mm3 (3.65-5.03)
[2021-02-09 17:10] LABS: BUN/Creatinine Ratio 9; Blood Urea Nitrogen 7 mg/dL (7-17); Calcium 9.7 mg/dL (8.4-10.2); Hemolysis Index 0
[2021-02-09 17:27] LABS: INR 0.9 (0.87-1.13); Partial Thromboplastin Time 26.4 Sec. (24.2-36.6)
--- NOTE | 2021-02-09 17:34 | Vascular Lab Report ---
DUPLEX DOPPLER LOWER EXTREMITY VEINS, LEFT INDICATION / CLINICAL INFORMATION: pain. TECHNIQUE: Duplex doppler imaging was performed through the veins of the left lower extremity using venous compr ession and other maneuvers. COMPARISON: None available. FINDINGS: LEFT COMMON FEMORAL VEIN: Negative. LEFT FEMORAL VEIN: Negative. LEFT POPLITEAL VEIN: Negative. LEFT CALF VEINS: Negative. ADDITIONAL FINDINGS: None. IMPRESSION: 1. No sonographic evidence for DVT in the left lower extremity. Signer Name: Zohaib Elliott MD Signed: 02/09/2021 5:30 PM Workstation Name: [id number]
[2021-02-09 19:22] VITALS: BP 148/96
--- NOTE | 2021-02-10 10:36 | Electrocardiograph Report ---
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
== END 2021-02-09 20:03 | disposition home or self-care (01) ==
LOC: ED 15:53
DX: M79.605 Pain in left leg (principal); I10 Essential (primary) hypertension
CPT/HCPCS: 36415; 80048; 85025; 85379; 85610; 85730; 93005; 99284

== ENCOUNTER 2021-03-12 12:32 | Emergency (ER) | payer MEDICAID ==
--- NOTE | 2021-03-12 13:28 | Emergency Department Report ---
ED Chest Pain HPI - General Chief Complaint: Chest Pain Stated Complaint: SHARP PAINS IN CHEST/HEADACHES Time Seen by Provider: 03/12/21 12:54 Source: patient Mode of arrival: Ambulatory Limitations: No Limitations - History of Present Illness Initial Comments: CC: chest pain HPI: This is a 60 yo female with hx of HTN, prediabetes, uterine polyps DUB, GERD who presents with chest pain. Two episodes of sharp central and left sided chest pain today and . Episodes last less than one second. Both episodes occurred at rest. Patient was evaluated by EMS on . Dr. Perla barrel assembly inspector performed echocardiogram and cardiac stress test March 01. Patient required cardiac clearance prior to AEROSOL SUPERVISOR surgery. She will have surgery to intervene on uterine polyps and endometrial thinking. She has had tachycardia. She stated that the barrel assembly inspector felt that medication Provera was likely causing the tachycardia. She admittedly has been under a lot of stress. Her best friend was taken to outside hospital due to cardiac arrest. She also had a recent in the family. I have reviewed electronic record. Patient had 2 negative D-dimer test this year, equivocal d-dimer last month In 2014 patient had myocardial perfusion scan which was normal negative for cardiac ischemia MD Complaint: chest pain -: Sudden Onset: during rest Pain Radiation: none Severity: mild Severity scale (0 -10): 4 Quality: sharp Consistency: now resolved Improves With: nothing Worsens With: nothing Treatments Prior to Arrival: other (EMS evaluation on ) - Related Data Previous Rx's Medication Instructions Recorded Last Taken Type Pantoprazole [Protonix TAB] 40 mg PO QDAY #30 tablet 09/01/20 Unknown Rx amLODIPine 5 mg PO DAILY #30 tab 09/01/20 Unknown Rx Potassium Chloride [K-Dur] 10 meq PO QDAY 30 Days #30 tablet 11/14/20 Unknown Rx amLODIPine 10 mg PO DAILY #30 tab 01/23/21 Unknown Rx Naproxen [Naprosyn] 500 mg PO BID #20 tablet 02/09/21 Unknown Rx Allergies Allergy/AdvReac Type Severity Reaction Status Date / Time No Known Allergies Allergy Verified 01/14/21 13:58 Heart Score - HEART Score History: Slightly suspicious EKG: Non-specific Age: 45-65 Risk factors: 1-2 risk factors Troponin: < normal limit HEART Score: 3 - EKG Read Time Time EKG Completed: 12:47 EKG Read Time: 12:54 - Critical Actions Critical Actions: 0-3 pts:0.9-1.7%risk of adverse cardiac event.Candidate for discharge ED Review of Systems ROS: Stated complaint: SHARP PAINS IN CHEST/HEADACHES Other details as noted in HPI Comment: All other systems reviewed and negative Constitutional: denies: chills, fever, malaise Respiratory: denies: cough, shortness of breath Cardiovascular: chest pain Gastrointestinal: denies: abdominal pain, nausea, vomiting Skin: denies: rash, lesions Neurological: denies: headache, weakness ED Past Medical Hx - Past Medical History Previous Medical History?: Yes Hx Hypertension: Yes Additional medical history: Prediabetes, uterine polyps - Surgical History Past Surgical History?: Yes Hx Breast Surgery: Yes (reduction) Additional Surgical History: , Tubaligation - Family History Family history: hypertension - Social History Smoking Status: Never Smoker Substance Use Type: None - Medications Home Medications: Home Medications Medication Instructions Recorded Confirmed Last Taken Type Pantoprazole [Protonix TAB] 40 mg PO QDAY #30 tablet 09/01/20 Unknown Rx amLODIPine 5 mg PO DAILY #30 tab 09/01/20 Unknown Rx Potassium Chloride [K-Dur] 10 meq PO QDAY 30 Days #30 tablet 11/14/20 Unknown Rx amLODIPine 10 mg PO DAILY #30 tab 01/23/21 Unknown Rx Naproxen [Naprosyn] 500 mg PO BID #20 tablet 02/09/21 Unknown Rx ED Physical Exam - General Limitations: No Limitations General appearance: alert, in no apparent distress - Head Head exam: Present: atraumatic, normocephalic - Eye Eye exam: Present: normal appearance - ENT ENT exam: Present: mucous membranes moist - Neck Neck exam: Present: normal inspection, full ROM - Respiratory Respiratory exam: Present: normal lung sounds bilaterally. Absent: respiratory distress, wheezes, rales, rhonchi - Cardiovascular Cardiovascular Exam: Present: regular rate, normal rhythm, normal heart sounds. Absent: systolic murmur, diastolic murmur, rubs, gallop - GI/Abdominal GI/Abdominal exam: Present: soft, normal bowel sounds. Absent: distended, tenderness, guarding, rebound - Extremities Exam Extremities exam: Present: normal inspection - Neurological Exam Neurological exam: Present: alert, oriented X3 - Psychiatric Psychiatric exam: Present: normal affect, normal mood - Skin Skin exam: Present: warm, dry, intact, normal color. Absent: rash MARYBETH score - Marybeth Score Age > 65: (0) No Aspirin use within the Past 7 Days: (0) No 3 or more CAD Risk Factors: (1) Yes 2 or more Angina events in past 24 hrs: (0) No Known CAD with more than 50% Stenosis: (0) No Elevated Cardiac Markers: (0) No ST Deviation Greater than 0.5mm: (0) No MARYBETH Score: 1 ED Medical Decision Making - Lab Data Result diagrams: 03/12/21 13:25 03/12/21 13:25 - Medical Decision Making Noncardiac chest pain, I do not suspect PE without persistent pain or symptoms. I do suspect stress reaction likely GERD likely PVCs. Patient given reassurance considering recent cardiac work-up by Dr. Perla. CBC chemistry troponin all within normal limits. Patient is discharged home. Refer to outpatient medicine physician. Critical care attestation.: If time is entered above; I have spent that time in minutes in the direct care of this critically ill patient, excluding procedure time. ED Disposition Clinical Impression: Chest wall pain Disposition: HOME / SELF CARE / HOMELESS Is pt being admited?: No Does the pt Need Aspirin: No Condition: Stable Instructions: Nonspecific Chest Pain, Adult Referrals: RITA GARNICA MD [Staff Physician] - 3-5 Days
[2021-03-12 14:07] LABS: Basophils # (Auto) 0.1 K/mm3 (0.0-0.1); Basophils % (Auto) 1.2 % (0.0-1.8); Eosinophils % (Auto) 0.8 % (0.0-4.3); Hematocrit 36.9 % (30.3-42.9); Hemoglobin 11.6 gm/dl (10.1-14.3); Lymphocytes # (Auto) 1.1 K/mm3 (1.2-5.4); Lymphocytes % (Auto) 20.7 % (13.4-35.0); Mean Corpuscular HGB Conc 31 % (30-34); Mean Corpuscular Volume 75 fl (79-97); Monocytes # (Auto) 0.3 K/mm3 (0.0-0.8); Monocytes % (Auto) 5.6 % (0.0-7.3); Platelet Count 325 K/mm3 (140-440); Red Blood Count 4.91 M/mm3 (3.65-5.03); Red Cell Distribution Width 17.5 % (13.2-15.2)
[2021-03-12 14:08] LABS: Alanine Aminotransferase 17 units/L (7-56); Albumin 4.2 g/dL (3.9-5); Blood Urea Nitrogen 6 mg/dL (7-17); Calcium 9.8 mg/dL (8.4-10.2); Hemolysis Index 0
[2021-03-12 14:18] LABS: BUN/Creatinine Ratio 10
[2021-03-12 15:20] VITALS: BP 133/86
== END 2021-03-12 15:17 | disposition home or self-care (01) ==
LOC: ED 12:32
DX: R07.89 Other chest pain (principal); I10 Essential (primary) hypertension
CPT/HCPCS: 36415; 80053; 84484; 85025; 93005; 99283

== ENCOUNTER 2021-04-17 12:49 | Emergency (ER) | payer MEDICAID ==
[2021-04-17] MEDS ORDERED: ACETAMINOPHEN 500 MG TAB PO ONE (14:51)
--- NOTE | 2021-04-17 14:52 | Emergency Department Report ---
ED General Adult HPI - General Chief complaint: Abdominal Pain Stated complaint: back pain Time Seen by Provider: 04/17/21 14:30 Source: patient Mode of arrival: Ambulatory Limitations: No Limitations - History of Present Illness Initial comments: 60-year-old female with a past medical history of hypertension, and tachycardia presents to the ER today with complaints of a knot to her epigastric area. She states that she noticed it yesterday and feels like is getting bigger and its tender to palpate. She also reports that she has been having pain in her left shoulder, but she admits that she has been having this pain off and on for about a few months and she was told prior that it could be related to muscle fatty tissue. She states that when she googled her symptoms, they told her it could be related to either pancreatic cancer or blockage in her heart and so she came in to get checked out. She reports some discomfort to her abdomen, but attributed to her being constipated. She states that she has not had a bowel movement in a few days, but did take Metamucil and had a normal bowel movement this morning. She denies any nausea, vomiting, shortness of breath, chest pain, fever, chills, UTI symptoms or URI symptoms. She denies any history of PE or DVT and denies any risk factors for PE or DVT. Patient admits that she had a colonoscopy 3 weeks ago by her GI specialist and it was normal. She also saw her silk soaker in January and had a normal echo and a normal nuclear stress test, but she was placed on metoprolol for her elevated heart rate. MD Complaint: "knot" epigastric area; Left shoulder pain -: days(s) Severity scale (0 -10): 8 - Related Data Previous Rx's Medication Instructions Recorded Last Taken Type Pantoprazole [Protonix TAB] 40 mg PO QDAY #30 tablet 09/01/20 Unknown Rx amLODIPine 5 mg PO DAILY #30 tab 09/01/20 Unknown Rx Potassium Chloride [K-Dur] 10 meq PO QDAY 30 Days #30 tablet 11/14/20 Unknown Rx amLODIPine 10 mg PO DAILY #30 tab 01/23/21 Unknown Rx Naproxen [Naprosyn] 500 mg PO BID #20 tablet 02/09/21 Unknown Rx Allergies Allergy/AdvReac Type Severity Reaction Status Date / Time No Known Allergies Allergy Verified 01/14/21 13:58 ED Review of Systems ROS: Stated complaint: back pain Other details as noted in HPI Comment: All other systems reviewed and negative Constitutional: denies: chills, fever Eyes: denies: eye pain, eye discharge, vision change ENT: denies: ear pain, throat pain Respiratory: denies: cough, shortness of breath, SOB with exertion, SOB at rest, wheezing Cardiovascular: denies: chest pain, edema, syncope, paroxysmal nocturnal dyspnea Gastrointestinal: abdominal pain. denies: nausea, vomiting, diarrhea, constipation, hematemesis, melena, hematochezia Genitourinary: denies: urgency, dysuria, frequency, hematuria, discharge, abnormal menses, dyspareunia Musculoskeletal: denies: back pain, joint swelling, arthralgia Skin: other (knot in epigastric area). denies: rash, lesions, change in color, change in hair/nails, pruritus Neurological: denies: headache, weakness, numbness, paresthesias, confusion, abnormal gait, vertigo Psychiatric: denies: anxiety, depression, auditory hallucinations, visual hallucinations, homicidal thoughts, suicidal thoughts Hematological/Lymphatic: denies: easy bleeding, easy bruising, swollen glands ED Past Medical Hx - Past Medical History Previous Medical History?: Yes Hx Hypertension: Yes Additional medical history: Prediabetes, uterine polyps - Surgical History Past Surgical History?: Yes Hx Breast Surgery: Yes (reduction) Additional Surgical History: , Tubaligation - Social History Smoking Status: Never Smoker Substance Use Type: None - Medications Home Medications: Home Medications Medication Instructions Recorded Confirmed Last Taken Type Pantoprazole [Protonix TAB] 40 mg PO QDAY #30 tablet 09/01/20 Unknown Rx amLODIPine 5 mg PO DAILY #30 tab 09/01/20 Unknown Rx Potassium Chloride [K-Dur] 10 meq PO QDAY 30 Days #30 tablet 11/14/20 Unknown Rx amLODIPine 10 mg PO DAILY #30 tab 01/23/21 Unknown Rx Naproxen [Naprosyn] 500 mg PO BID #20 tablet 02/09/21 Unknown Rx ED Physical Exam - General Limitations: No Limitations General appearance: alert, in no apparent distress, anxious, obese - Head Head exam: Present: atraumatic, normocephalic, normal inspection - Eye Eye exam: Present: normal appearance, PERRL, EOMI Pupils: Present: normal accommodation - Neck Neck exam: Present: normal inspection, full ROM - Respiratory Respiratory exam: Present: normal lung sounds bilaterally, chest wall tenderness (Patient has a prominent xiphoid process, which is where she feels that the knot is located, no apparent induration, swelling, fluctuance or masslike process noted to the area. She does have tenderness along the xiphoid process and the rest of her sternum.). Absent: respiratory distress, wheezes, rales, rhonchi - Cardiovascular Cardiovascular Exam: Present: regular rate, normal rhythm, normal heart sounds - GI/Abdominal GI/Abdominal exam: Present: soft. Absent: distended, tenderness, guarding, rebound - Neurological Exam Neurological exam: Present: alert, oriented X3, CN II-XII intact, normal gait - Psychiatric Psychiatric exam: Present: normal affect, normal mood - Skin Skin exam: Present: intact ED Course Vital Signs 04/17/21 04/17/21 13:13 17:02 Temperature 98.5 F Pulse Rate 91 H 86 Respiratory 18 18 Rate Blood Pressure 139/88 118/79 [Right] O2 Sat by Pulse 100 100 Oximetry ED Medical Decision Making - Lab Data Result diagrams: 04/17/21 14:56 04/17/21 14:56 - EKG Data EKG shows normal: sinus rhythm Rate: normal (87) - EKG Data Interpretation: no acute changes, LVH - Radiology Data Radiology results: report reviewed Patient: ANNABELLE MORENO MR#: [id number] 5 : 1960 Acct:[id number] Age/Sex: 60 / F ADM Date: 04/17/21 Loc: ED Attending Dr: Ordering Physician: ALLIE PALMER Date of Service: 04/17/21 Procedure(s): XR chest routine 2V Accession Number(s): [id number] cc: ALLIE PALMER Fluoro Time In Minutes: CHEST PA AND LATERAL VIEWS INDICATION: epigastric discomfort. COMPARISON: 01/23/2021 FINDINGS: Support devices: None. Heart: Within normal limits. Lungs/Pleura: No acute pulmonary or pleural findings. IMPRESSION: 1. No acute findings. Signer Name: Justino Jordan MD Signed: 04/17/2021 4:07 PM Workstation Name: [id number] Transcribed By: ARTHUR Dictated By: Justino Jordan MD Electronically Authenticated By: Justino Jordan MD Signed Date/Time: 04/17/211606 DD/ 06 TD/TT: - Medical Decision Making All labs reviewed -- CBC , and CMP normal. trop normal. EKG shows no ischemic changes or significant dysrhythmias or STEMI. The "not" that patient points to seems to be related to her xiphoid process. Her abdomen was soft and nontender without any fullness or masslike area. No apparent signs of like abscess. Patient left shoulder pain more likely is musculoskeletal related. I feel like patient may does have anxious by doing research online about her symptoms. Reassured patient that based on her physical exam, and her work-up does not appear to be related to unstable angina, aortic dissection, PE as she has a PERC score of 0, pneumonia, or any other emergent conditions warranting additional testing, or admission at this time. Her vital signs are stable. She is neurologically intact with a normal gait. She is hemodynamically stable. patient expressed understanding agree with plan. Patient was stable at time of discharge. Critical care attestation.: If time is entered above; I have spent that time in minutes in the direct care of this critically ill patient, excluding procedure time. ED Disposition Clinical Impression: Left shoulder pain, Sternum pain Disposition: HOME / SELF CARE / HOMELESS Is pt being admited?: No Does the pt Need Aspirin: No Condition: Stable Instructions: Shoulder Pain, Chest Wall Pain, Abdominal Pain (ED) Additional Instructions: I recommend that you follow-up with your primary care doctor for continued care and further evaluation. You can take ibuprofen or Tylenol from [id number] to help with pain. Return to the ER if your symptoms changes or worsens in any way. Referrals: PRIMARY CAREMD [Primary Care Provider] - 3-5 Days Time of Disposition: 16:47
[2021-04-17 15:31] LABS: Alanine Aminotransferase 13 units/L (7-56); Albumin 4.1 g/dL (3.9-5); Blood Urea Nitrogen 8 mg/dL (7-17); Calcium 9.7 mg/dL (8.4-10.2); Hemolysis Index 7
[2021-04-17 15:33] LABS: Basophils % (Auto) 0.8 % (0.0-1.8); Eosinophils # (Auto) 0.1 K/mm3 (0.0-0.4); Hematocrit 38.9 % (30.3-42.9); Lymphocytes # (Auto) 1.7 K/mm3 (1.2-5.4); Lymphocytes % (Auto) 29.4 % (13.4-35.0); Mean Corpuscular HGB Conc 31 % (30-34); Mean Corpuscular Volume 74 fl (79-97); Monocytes # (Auto) 0.3 K/mm3 (0.0-0.8); Monocytes % (Auto) 5.1 % (0.0-7.3); Platelet Count 277 K/mm3 (140-440); Red Blood Count 5.28 M/mm3 (3.65-5.03); Red Cell Distribution Width 17.3 % (13.2-15.2)
[2021-04-17 15:36] LABS: BUN/Creatinine Ratio 16
--- NOTE | 2021-04-17 16:12 | XRay Report ---
CHEST PA AND LATERAL VIEWS INDICATION: epigastric discomfort. COMPARISON: 01/23/2021 FINDINGS: Support devices: None. Heart: Within normal limits. Lungs/Pleura: No acute pulmonary or pleural findings. IMPRESSION: 1. No acute findings. Signer Name: Justino Jordan MD Signed: 04/17/2021 4:07 PM Workstation Name: [id number]
[2021-04-17 17:03] VITALS: BP 118/79
--- NOTE | 2021-04-19 14:30 | Electrocardiograph Report ---
[facility] Test Date: 2021-04-17 Test Time: 15:37:24 Pat Name: ANNABELLE MORENO Department: Room: Gender: F Sba Underwriter: ARNEL : 1960 Requested By: ALLIE PALMER Order Number: [id number] Reading MD: Tennille Davison Measurements Intervals [place] Rate: 87 P: 74 CT: 114 QRS: -27 QRSD: 83 T: 10 QT: 360 QTc: 433 Interpretive Statements Sinus rhythm Left ventricular hypertrophy Compared to ECG 03/12/2021 12:47:23 No significant change Electronically Signed On 04-19-2021 14:30:09 EST by Tennille Davison
== END 2021-04-17 17:04 | disposition home or self-care (01) ==
LOC: ED 12:49
DX: M25.512 Pain in left shoulder (principal); R07.2 Precordial pain; I10 Essential (primary) hypertension
CPT/HCPCS: 36415; 71046; 80053; 83690; 84484; 85025; 93005; 99284

== ENCOUNTER 2021-06-08 11:55 | Outpatient (CLI) | payer MEDICAID ==
--- NOTE | 2021-06-08 13:45 | XRay Report ---
CHEST 2 VIEWS INDICATION / CLINICAL INFORMATION: R22.2 LOCALIZED SWELLING,MASS AND LUMP TRUNK. COMPARISON: 04/17/2021 FINDINGS: SUPPORT DEVICES: None. HEART / MEDIASTINUM: No significant abnormality. LUNGS / PLEURA: No significant pulmonary or pleural abnormality. No pneumothorax. ADDITIONAL FINDINGS: No significant additional findings. IMPRESSION: 1. No acute findings. Signer Name: Gerson Wilson MD Signed: 06/08/2021 1:41 PM Workstation Name: [id number]
== END 2021-06-08 11:56 | disposition home or self-care (01) ==
LOC: XRAY 11:55
PROVIDERS: ATTEND Internal Medicine
DX: R22.2 Localized swelling, mass and lump, trunk (principal)
CPT/HCPCS: 71046

== ENCOUNTER 2021-06-24 06:56 | Day surgery (SDC) | payer MEDICAID ==
[2021-06-22 12:40] LABS: Hematocrit 36.7 % (30.3-42.9); Hemoglobin 12.1 gm/dl (10.1-14.3); Mean Corpuscular HGB Conc 33 % (30-34); Mean Corpuscular Volume 75 fl (79-97); Platelet Count 265 K/mm3 (140-440); Red Blood Count 4.92 M/mm3 (3.65-5.03); Red Cell Distribution Width 16.5 % (13.2-15.2)
[~2021-06-24 06:56] MED LIST: ACETAMINOPHEN 500 MG TAB PO SCH; LACTATED RINGERS 1,000 ML IV SCH; MIDAZOLAM 2 MG/2 ML INJ IV NR
[2021-06-24] MEDS ORDERED: ONDANSETRON 4 MG/2 ML INJ IV PRN (08:16)
[2021-06-24] MEDS ORDERED: HYDROmorphone 1 MG/1 ML INJ IV PRN (08:16)
[2021-06-24] MEDS ORDERED: HYDROcodone/ACETAMINOPHEN 5-325 MG TAB PO PRN (08:16)
--- NOTE | 2021-06-24 08:16 | Anesthesia Consultation ---
Anesthesia Consult and Med Hx Date of service: 06/24/21 - Airway Anesthetic Teeth Evaluation: Good ROM Head & Neck: Adequate Mental/Hyoid Distance: Adequate Mallampati Class: Class III Intubation Access Assessment: Possibly Difficult - Pre-Operative Health Status ASA Pre-Surgery Classification: ASA3 Proposed Anesthetic Plan: General - Pulmonary Hx Smoking: No Hx Respiratory Symptoms: No - Cardiovascular System Hx Hypertension: Yes (took amlodipine last night) Hx Heart Attack/AMI: No (recent negative stress test, normal EF) Hx Percutaneous Transluminal Coronary Angioplasty (PTCA): No Hx Cardia Arrhythmia: Yes (occasional PVCs; rx for metoprolol but does not take) Hx Pacemaker: No Hx Internal Defibrillator: No - Central Nervous System CVA: No Hx Back Pain: Yes - Endocrine Hx Renal Disease: No Hx Liver Disease: No Hx Insulin Dependent Diabetes: No Hx Non-Insulin Dependent Diabetes: No Hx Thyroid Disease: No - Hematic Hx Anemia: Yes - Other Systems Hx Obesity: Yes (BMI 35) - Additional Comments Anesthesia Medical History Comments: No hx anesthetic complications.
--- NOTE | 2021-06-24 08:17 | Anesthesia Day of Surgery ---
Anesthesia Day of Surgery - Day of Surgery Patient Examined: Yes Patient H&P Reviewed: Yes Patient is NPO: Yes
[2021-06-24] MEDS ORDERED: MIDAZOLAM 2 MG/2 ML INJ ONE (09:09)
--- NOTE | 2021-06-24 09:24 | Operative Report ---
Operative Report Operative Report: Preoperative diagnosis: Dysfunctional uterine bleeding with suspected endometrial polyp Postoperative diagnosis: Same Procedure: Hysteroscopy dilation and curettage Surgeon: Dr. Frances Amin Anesthesia: GETA EBL: Minimal Urine output: 200 mL clear IV fluids:250ml Complications: None Drains: None Finding: Polypoid endometrial tissue, no obvious endometrial lesions; uterus midline not bulky with no adnexal masses Procedure: Patient was counseled in preop holding area about risks benefits possible complications as well as alternatives to the procedure. Informed consent was obtained. She was taken to the OR where she received excellent general endotracheal anesthesia. She was then placed in a dorsal lithotomy position. Exam under anesthesia revealed the above findings. Patient was then prepped and draped in a sterile fashion. A timeout was verified. Patient was straight cathed with a red rubber catheter, with 200 cc clear urine obtained. A speculum was placed in the vaginal vault, the cervix was noted to be pink with no lesions. A single-tooth tenaculum was placed on the anterior lip of the cervix and the endometrium sounded to 8 cm MA, the cervix was then dilated to allow for the passage of the hysteroscope. The uterus was hydrodistended, the endometrium was noted to be polyploid without an intracavitary lesion. Sharp curettage was performed with the Kevorkian curette. Endometrial samplings were sent to pathology. At the completion of the procedure the hysteroscope, tenaculum, and speculum were removed from the uterus cervix and vagina respectively. EBL minimal. Patient extubated and taken to the PACU in stable condition. Patient's family notified of stable condition for completion of the procedure. All sponge needle instrument counts correct x2. Patient will follow-up in the outpatient setting in 1 week. Dejuan GAVIN
[2021-06-24] MEDS ORDERED: LIDOCAINE MPF (2%) 20 MG/1 ML VIAL 5 ML ONE (10:34)
[2021-06-24] MEDS ORDERED: propofoL 200 MG/20 ML VIAL IV ONE (10:35)
[2021-06-24] MEDS ORDERED: fentaNYL 100 MCG/2 ML INJ ONE (10:35)
[2021-06-24] MEDS ORDERED: dexAMETHasone 20 MG/5 ML VIAL ONE (10:58)
[2021-06-24] MEDS ORDERED: ONDANSETRON 4 MG/2 ML INJ ONE (10:58)
[2021-06-24] MEDS ORDERED: KETOROLAC 30 MG/1 ML INJ ONE (10:58)
[2021-06-24] MEDS ORDERED: LACTATED RINGERS 1,000 ML ONE (11:17)
[2021-06-24 11:58] VITALS: BP 125/72
--- NOTE | 2021-06-24 14:59 | Post Anesthesia Evaluation ---
- Post Anesthesia Evaluation Patient Participated: Yes Airway Patent: Yes Stable Respiratory Function: Yes Nausea/Vomiting: No Temp > 96.8F: Yes Pain Manageable: Yes Adequeate Hydration: Yes Anesthesia Complications: No
== END 2021-06-24 12:40 | disposition home or self-care (01) ==
LOC: OR 06:56
PROVIDERS: ATTEND Obstetrics & Gynecology
DX: N93.8 Other specified abnormal uterine and vaginal bleeding (principal); N85.8 Other specified noninflammatory disorders of uterus; I10 Essential (primary) hypertension; I42.9 Cardiomyopathy, unspecified; K21.9 Gastro-esophageal reflux disease without esophagitis; E66.9 Obesity, unspecified; Z98.51 Tubal ligation status; Z20.822 Contact with and (suspected) exposure to COVID-19; Z79.899 Other long term (current) drug therapy; Z98.891 History of uterine scar from previous surgery; Z68.35 Body mass index [BMI] 35.0-35.9, adult; Z82.49 Family history of ischemic heart disease and other diseases of the circulatory system
CPT/HCPCS: 36415; 58558; 84703; 85027; 88305; J1100; J1885; J2250; J2405; J2704; J3010; J3490; J7120; U0003

== ENCOUNTER 2021-08-05 12:27 | Outpatient (CLI) | payer MEDICAID ==
--- NOTE | 2021-08-05 13:38 | XRay Report ---
Right knee 3 views INDICATION: Knee pain FINDINGS: Tricompartmental degenerative change with joint space narrowing in the medial compartment a nd patellofemoral joint. No acute fracture dislocation IMPRESSION: Tricompartmental degenerative change Signer Name: Bhupinder Maria MD Signed: 08/05/2021 1:34 PM Workstation Name: [id number]
== END 2021-08-05 12:28 | disposition home or self-care (01) ==
LOC: XRAY 12:27
PROVIDERS: ATTEND Internal Medicine
DX: M17.11 Unilateral primary osteoarthritis, right knee (principal)